=== PATIENT | male | born 1990 | race Hispanic/Latino ===

== ENCOUNTER 2018-10-04 09:51 | Emergency (ER) | payer OTHER ==
--- NOTE | 2018-10-04 11:13 | EDPHYS ---
Physician Documentation [facility] Name: Ari Albert Age: 28 yrs Sex: Male : 1990 Arrival Date: 10/04/2018 Time: 09:54 Bed 17 Private MD: Malika Griffin Z ED Physician Ranjit Dhillon HPI: 10/04 10:55 This 28 yrs old Male presents to ER via Ambulatory with complaints of Neck ps1 Pain, <24hrs Old, Back Pain, Leg Pain. 10:55 patient with well established back pain and neck pain. He has been going to a [facility] for some time. Pain is worse today. Hurts to walk. Pain localized to right SI joint and left lower cervical region. Pain rated as moderate worse with movement. . Historical: - Allergies: 10:20 No Known Allergies; la1 - PMHx: 10:20 None; la1 - Immunization history:: Adult Immunizations up to date. - Social history:: Smoking status: Patient uses tobacco products, smokes one-half pack cigarettes per day. - Ebola Screening: : No symptoms or risks identified at this time. ROS: 10:55 Constitutional: Negative for fever, chills, and weight loss, Eyes: Negative for injury, ps1 pain, redness, and discharge, Cardiovascular: Negative for chest pain, palpitations, and edema, Respiratory: Negative for shortness of breath, cough, wheezing, and pleuritic chest pain, Abdomen/GI: Negative for abdominal pain, nausea, vomiting, diarrhea, and constipation, MS/Extremity: Negative for injury and deformity, Skin: Negative for injury, rash, and discoloration, Neuro: Negative for headache, weakness, numbness, tingling, and seizure. 10:55 Neck: Positive for pain with movement, spasm. 10:55 Back: Positive for decreased range of motion, pain at right SI joint. . Exam: 10:55 Constitutional: This is a well developed, well nourished patient who is awake, alert, ps1 and in no acute distress. Head/Face: Normocephalic, atraumatic. Eyes: Pupils equal round and reactive to light, extra-ocular motions intact. Lids and lashes normal. Conjunctiva and sclera are non-icteric and not injected. Chest/axilla: Normal chest wall appearance and motion. Nontender with no deformity. No lesions are appreciated. Cardiovascular: Regular rate and rhythm. No gallops, murmurs, or rubs. Normal PMI, no JVD. No pulse deficits. Respiratory: Lungs have equal breath sounds bilaterally, clear to auscultation and percussion. No rales, rhonchi or wheezes noted. No increased work of breathing, no retractions or nasal flaring. Abdomen/GI: Soft, non-tender, with normal bowel sounds. No distension or tympany. No guarding or rebound. No evidence of tenderness throughout. Skin: Warm, dry with normal turgor. Normal color with no rashes, no lesions, and no evidence of cellulitis. MS/ Extremity: Pulses equal, no cyanosis. Neurovascular intact. Full, normal range of motion. Neuro: Awake and alert, GCS 15, oriented to person, place, time, and situation. Cranial nerves II-XII grossly intact. Sensory grossly intact. 10:55 Neck: External neck: tenderness, that is moderate, of the left trapezius. 10:55 Back: pain, that is moderate, of the right low back. Vital Signs: 10:20 BP 124 / 83; Pulse 75; Resp 16; Temp 97.8; Pulse Ox 98% on R/A; Weight 79.38 kg; Height la1 6 ft. 2 in. (187.96 cm); 10:20 Body Mass Index 22.47 (79.38 kg, 187.96 cm) la1 MDM: 10:55 Data reviewed: vital signs, nurses notes. ED course: Patient examined in supine and ps1 prone position. TART findings in SI, lumbar, mid thoracic, and cervical spine. HVLA performed. Patient had increased ROM and decreased pain after procedure. NV intact. . 11:13 Patient medically screened. ps1 Administered Medications: No medications were administered Disposition: 10/04/18 11:13 Discharged to Home. Impression: Sacroiliitis, not elsewhere classified, Cervicalgia. - Condition is Stable. - Discharge Instructions: Musculoskeletal Pain. - Prescriptions for Anaprox DS 550 mg Oral Tablet - take 1 tablet by ORAL route every 12 hours As needed; 20 tablet. Robaxin 500 mg Oral Tablet - take 2 tablet by ORAL route every 6 hours As needed; 40 tablet. Medrol (Magan) 4 mg Oral Tablets, Dose Pack - take 1 tablet by ORAL route as directed - follow package instructions; 1 packet. - Medication Reconciliation Form, Thank You Letter, Antibiotic Education, Prescription Opioid Use form. - Follow up: Private Physician; When: As needed; Reason: Recheck today's complaints, Continuance of care, Re-evaluation by your physician. Follow up: Emergency Department; When: As needed; Reason: Worsening of condition. - Problem is an acute exacerbation. - Symptoms have improved. Signatures: Lena Chanel RN RN aa5 Rohith Perez RN RN la1 Ranjit Dhillon MD MD ps1 Corrections: (The following items were deleted from the chart) 11:28 11:13 10/04/2018 11:13 Discharged to Home. Impression: Sacroiliitis, not elsewhere aa5 classified; Cervicalgia. Condition is Stable. Forms are Medication Reconciliation Form, Thank You Letter, Antibiotic Education, Prescription Opioid Use. Follow up: Private Physician; When: As needed; Reason: Recheck today's complaints, Continuance of care, Re-evaluation by your physician. Follow up: Emergency Department; When: As needed; Reason: Worsening of condition. Problem is an acute exacerbation. Symptoms have improved. ps1
--- NOTE | 2018-10-04 11:13 | ER ---
Nurse's Notes [facility] Name: Ari Albert Age: 28 yrs Sex: Male : 1990 Arrival Date: 10/04/2018 Time: 09:54 Bed 17 Private MD: Malika Griffin Z Diagnosis: Sacroiliitis, not elsewhere classified;Cervicalgia Presentation: 10/04 10:19 Presenting complaint: Patient states: Yesterday morning I woke up with neck pain and la1 today the pain is radiating down my spine all the way to my right leg. Transition of care: patient was not received from another setting of care. Acute neurological deficit: none identified. Onset of symptoms was October 04, 2018. Risk Assessment: Do you want to hurt yourself or someone else? Patient reports no desire to harm self or others. Initial Sepsis Screen: Does the patient meet any 2 criteria? No. Patient's initial sepsis screen is negative. Does the patient have a suspected source of infection? No. Patient's initial sepsis screen is negative. Care prior to arrival: None. 10:19 Method Of Arrival: Ambulatory la1 10:19 Acuity: BENNY 3 la1 Historical: - Allergies: 10:20 No Known Allergies; la1 - PMHx: 10:20 None; la1 - Immunization history:: Adult Immunizations up to date. - Social history:: Smoking status: Patient uses tobacco products, smokes one-half pack cigarettes per day. - Ebola Screening: : No symptoms or risks identified at this time. Screenin:50 Abuse screen: Denies threats or abuse. Nutritional screening: No deficits noted. aa5 Tuberculosis screening: No symptoms or risk factors identified. Fall Risk None identified. Assessment: 10:50 General: Appears uncomfortable, Behavior is calm, cooperative. Pain: Complains of pain aa5 in right side of neck, right side of back Pain radiates to right leg Pain currently is 10 out of 10 on a pain scale. Quality of pain is described as aching, tender, throbbing, Is continuous, Aggravated by increased activity, Noted to be resistant to movement. Neuro: Level of Consciousness is awake, alert, obeys commands, Oriented to person, place, time, situation. Cardiovascular: Heart tones S1 S2 present Rhythm is regular. Respiratory: Airway is patent Respiratory effort is even, unlabored, Respiratory pattern is regular, symmetrical. GI: No signs and/or symptoms were reported involving the gastrointestinal system. : No signs and/or symptoms were reported regarding the genitourinary system. EENT: No signs and/or symptoms were reported regarding the EENT system. Derm: Skin is pink, warm \T\ dry. Musculoskeletal: Range of motion: intact in all extremities. 11:00 Reassessment: Dr. Dhillon at bedside. Dr Denney manipulating pt's back and neck at this aa5 time. . 11:10 Reassessment: Patient is alert, oriented x 3, equal unlabored respirations, skin aa5 warm/dry/pink. Pt's states feeling better. Pain: Pain currently is 5 out of 10 on a pain scale. Vital Signs: 10:20 BP 124 / 83; Pulse 75; Resp 16; Temp 97.8; Pulse Ox 98% on R/A; Weight 79.38 kg; Height la1 6 ft. 2 in. (187.96 cm); 10:20 Body Mass Index 22.47 (79.38 kg, 187.96 cm) la1 ED Course: 09:54 Patient arrived in ED. rg4 09:55 Malika Griffni MD is Private Physician. rg4 10:19 Triage completed. la1 10:20 Arm band placed on right wrist. la1 10:43 Ranjit Dhillon MD is Attending Physician. ps1 10:46 Lena Chanel RN is Primary Nurse. aa5 10:50 Patient has correct armband on for positive identification. Bed in low position. Call aa5 light in reach. Side rails up X 1. 11:25 Patient did not have IV access during this emergency room visit. aa5 11:25 No provider procedures requiring assistance completed. aa5 Administered Medications: No medications were administered Outcome: 11:13 Discharge ordered by . ps1 11:25 Discharged to home ambulatory, with significant other. aa5 11:25 Condition: improved 11:25 Discharge instructions given to patient, Instructed on discharge instructions, follow up and referral plans. medication usage, Demonstrated understanding of instructions, follow-up care, medications, Prescriptions given X 3. 11:28 Patient left the ED. aa5 Signatures: Lena Chanel RN RN aa5 Rohith Perez RN RN la1 Julisa Long rg4 Ranjit Dhillon MD MD ps1 Corrections: (The following items were deleted from the chart) 15:31 11:00 Reassessment: Dr. Dhillon at bedside . aa5 aa5
== END 2018-10-04 11:28 | disposition home or self-care (01) ==
LOC: ER 09:51
DX: M46.1 Sacroiliitis, not elsewhere classified (principal); F17.210 Nicotine dependence, cigarettes, uncomplicated; M54.2 Cervicalgia
CPT/HCPCS: 99282

== ENCOUNTER 2019-02-15 18:34 | Emergency (ER) | payer OTHER ==
--- OUTSIDE RECORDS SUMMARY | 2019-02-15 18:36 | XMS REPORT ---
:1990 [facility] [address] [place] [address] [place] [id number] Care Team Providers Name Role Phone Unavailable Unavailable Unavailable Problems This patient has no known problems. Allergies, Adverse Reactions, Alerts This patient has no known allergies or adverse reactions. Medications This patient has no known medications.
--- NOTE | 2019-02-15 19:42 | RAD REPORT ---
EXAM DESCRIPTION: RAD - Chest Single View - 02/15/2019 7:32 pm CLINICAL HISTORY: Chest pain COMPARISON: None. TECHNIQUE: AP portable chest image was obtained 1925 hours . FINDINGS: Lungs are clear. Heart and vasculature are normal. No measurable pleural effusion and no p neumothorax. No acute bony abnormality seen. No acute aortic findings suspected. IMPRESSION: No acute cardiopulmonary process.
[2019-02-15 19:59] LABS: Hematocrit 48.1 % (39.6-49.0); RBC Red Blood Cell Count 5.32 M/uL (4.33-5.43)
[2019-02-15 20:20] LABS: Barbiturates NEGATIVE (NEGATIVE); Benzodiazepines NEGATIVE (NEGATIVE); Cocaine NEGATIVE (NEGATIVE); METHAMPHETAM NEGATIVE (NEGATIVE); Methadone NEGATIVE (NEGATIVE); Opiates NEGATIVE (NEGATIVE); Phencyclidine NEGATIVE (NEGATIVE); THC Cannibis NEGATIVE (NEGATIVE)
[2019-02-15 20:22] LABS: BUN Blood Urea Nitrogen 11 mg/dL (7-18); Bicarbonate 29 mmol/L (21-32); Glucose Level 100 mg/dL (74-106); Potassium 3.8 mmol/L (3.5-5.1); Sodium Level 139 mmol/L (136-145); Troponin (Emerg Dept Use Only) < 0.02 ng/mL (0.0-0.045)
[2019-02-15 20:46] LABS: Urine Blood NEGATIVE (NEG); Urine Glucose NEGATIVE (NEG); Urine Protein NEGATIVE (NEG); Urine Specific Gravity 1.015 (1.005-1.030); Urine pH 7.5 (5.0-7.0)
[2019-02-15 20:51] LABS: Absolute Lymphocytes (CBC) 1.7 K/uL (0.7-4.9); Absolute Neutrophil 14.1 K/uL (1.8-8.0); Basophils % 0.3 % (0-1.3); Eosinophils % 2.2 % (0-4.4); Lymphocytes % 10.1 % (15.3-44.8); Monocytes % 5.9 % (3.3-12.3)
[2019-02-15] MEDS ORDERED: NA CHLORIDE 0.9% 1,000 ML ONE (21:06)
[2019-02-15 22:32] LABS: Absolute Monocytes 0.9 K/uL (0.1-1.3); Absolute Neutrophil 11.6 K/uL (1.8-8.0); Basophils % 0.4 % (0-1.3); Eosinophils % 2.7 % (0-4.4); Hematocrit 41.6 % (39.6-49.0); Lymphocytes % 13.6 % (15.3-44.8); MPV 8.8 fL (7.6-11.3); Monocytes % 6.3 % (3.3-12.3); RBC Red Blood Cell Count 4.67 M/uL (4.33-5.43)
--- NOTE | 2019-02-15 22:52 | ER ---
Nurse's Notes [facility] Name: Ari Albert Age: 28 yrs Sex: Male : 1990 Arrival Date: 02/15/2019 Time: 18:36 Bed 8 Private MD: Diagnosis: Chest pain. Anxiety disoder Presentation: 02/15 18:38 Presenting complaint: Patient states: continuous L sided CP that began days ago. Pt ss reports sharp pains that come and go on occasion. Transition of care: patient was not received from another setting of care. Onset of symptoms is unknown. Risk Assessment: Do you want to hurt yourself or someone else? Patient reports no desire to harm self or others. Initial Sepsis Screen: Does the patient meet any 2 criteria? No. Patient's initial sepsis screen is negative. Does the patient have a suspected source of infection? No. Patient's initial sepsis screen is negative. Care prior to arrival: None. 18:38 Method Of Arrival: Ambulatory ss 18:38 Acuity: BENNY 3 ss Triage Assessment: 18:45 General: Appears in no apparent distress. comfortable, Behavior is cooperative, bp appropriate for age, anxious. Pain: Complains of pain in chest. EENT: No deficits noted. Neuro: Level of Consciousness is awake, alert, obeys commands, Oriented to person, place, time, situation, Appropriate for age. Cardiovascular: Rhythm is sinus rhythm. Respiratory: Airway is patent Respiratory effort is even, unlabored, Respiratory pattern is regular, symmetrical. GI: No signs and/or symptoms were reported involving the gastrointestinal system. : No signs and/or symptoms were reported regarding the genitourinary system. Derm: No deficits noted. Musculoskeletal: Circulation, motion, and sensation intact. Range of motion: intact in all extremities. Historical: - Allergies: 18:40 No Known Allergies; ss - Home Meds: 18:40 None [Active]; ss - PMHx: 18:40 Anxiety; ss - PSHx: 18:40 None; ss - Immunization history:: Adult Immunizations up to date. - Social history:: Smoking status: Patient uses tobacco products, smokes one-half pack cigarettes per day. - Ebola Screening: : Patient denies exposure to infectious person Patient denies travel to an Ebola-affected area in the 21 days before illness onset. Screenin:45 Abuse screen: Denies threats or abuse. Denies injuries from another. Nutritional bp screening: No deficits noted. Tuberculosis screening: No symptoms or risk factors identified. Fall Risk None identified. Assessment: 18:45 General: SEE TRIAGE NOTE. bp 19:45 General: Appears in no apparent distress. comfortable, Behavior is calm, cooperative, lp1 appropriate for age. Pain: Complains of pain in chest Pain does not radiate. Pain currently is 0 out of 10 on a pain scale. Pain began 2-3 days ago. Neuro: Level of Consciousness is awake, alert, obeys commands, Oriented to person, place, time, situation. Cardiovascular: Patient's skin is warm and dry. Respiratory: Respiratory effort is even, unlabored. GI: No deficits noted. : No deficits noted. EENT: No deficits noted. Derm: Skin is pink, warm \T\ dry. Musculoskeletal: Circulation, motion, and sensation intact. 20:45 Reassessment: Patient appears in no apparent distress at this time. No changes from lp1 previously documented assessment. Patient and/or family updated on plan of care and expected duration. Pain level reassessed. 21:36 Reassessment: Patient appears in no apparent distress at this time. Patient is alert, lp1 oriented x 3, equal unlabored respirations, skin warm/dry/pink. Patient denies pain at this time. Patient states feeling better. 22:30 Reassessment: Patient is alert, oriented x 3, equal unlabored respirations, skin lp1 warm/dry/pink. Patient denies pain at this time. Patient states feeling better. Vital Signs: 18:37 BP 129 / 96; Pulse 88; Resp 17; Temp 98.1(O); Pulse Ox 100% on R/A; Weight 79.38 kg; ss Height 6 ft. 2 in. (187.96 cm); Pain 7/10; 19:45 BP 142 / 93; Pulse 80; Resp 16; Pulse Ox 99% on R/A; Pain 0/10; lp1 20:45 BP 134 / 82; Pulse 87; Resp 16; Pulse Ox 98% on R/A; Pain 0/10; lp1 21:30 BP 144 / 97; Pulse 70; Resp 16; Pulse Ox 99% on R/A; Pain 0/10; lp1 22:30 BP 134 / 85; Pulse 71; Resp 16; Pulse Ox 98% on R/A; lp1 23:24 BP 131 / 79; Pulse 67; Resp 16; Pulse Ox 98% on R/A; Pain 0/10; lp1 18:37 Body Mass Index 22.47 (79.38 kg, 187.96 cm) ED Course: 18:36 Patient arrived in ED. mr 18:37 Arm band placed on right wrist. ss 18:39 Triage completed. 18:45 Patient has correct armband on for positive identification. Bed in low position. Call bp light in reach. Side rails up X2. 18:58 Papa James, RN is Primary Nurse. bp 19:07 Shaheed Valera MD is Attending Physician. pkl 19:31 XRAY CXR (1 view) In Process Unspecified. EDMS 19:45 Initial lab(s) drawn, by me, sent to lab. lp1 19:56 aoc director combat operations officer on. Pulse ox on. NIBP on. lp1 19:56 Patient maintains SpO2 saturation greater than 95% on room air. lp1 20:59 Inserted saline lock: 22 gauge in right forearm, using aseptic technique. lp1 21:19 Strep swab sent to lab. lp1 21:38 No provider procedures requiring assistance completed. lp1 22:00 Repeat lab(s) drawn. by me, sent to lab. lp1 23:24 IV discontinued, No redness/swelling at site. Pressure dressing applied. lp1 Administered Medications: 20:59 Drug: NS 0.9% 1000 ml Route: IV; Rate: 1000 ml; Site: right forearm; lp1 22:00 Follow up: IV Status: Completed infusion; IV Intake: 1000ml lp1 Intake: 22:00 IV: 1000ml; Total: 1000ml. lp1 Outcome: 22:51 Discharge ordered by . pkl 23:25 Discharged to home ambulatory. lp1 23:25 Condition: good 23:25 Discharge instructions given to patient, Instructed on discharge instructions, follow up and referral plans. medication usage, Demonstrated understanding of instructions, follow-up care, medications, Prescriptions given X 1. 23:25 Patient left the ED. lp1 Signatures: Dispatcher [employer] EDAL Shaheed Valera MD MD pkl Rivera, Mary Lu Tena RN RN Ginny Feng RN RN lp1 Papa James, RN RN bp Corrections: (The following items were deleted from the chart) 21:24 20:45 BP 122 / 43; Pulse 72bpm; Resp 18bpm; Pulse Ox 97% RA; Temp 99F Oral; Pain 0/10; lp1 lp1
--- NOTE | 2019-02-15 22:52 | EDPHYS ---
Physician Documentation [facility] Name: Ari Albert Age: 28 yrs Sex: Male : 1990 Arrival Date: 02/15/2019 Time: 18:36 Bed 8 Private MD: ED Physician Shaheed Valera HPI: 02/15 19:17 This 28 yrs old Male presents to ER via Ambulatory with complaints of Chest pkl Pain. 19:17 The patient or guardian reports chest pain that is located primarily in the left chest. pkl The pain does not radiate. Associated signs and symptoms: Pertinent positives: shortness of breath. The chest pain is described as dull. The patient has experienced similar episodes in the past, several times. Historical: - Allergies: 18:40 No Known Allergies; ss - Home Meds: 18:40 None [Active]; ss - PMHx: 18:40 Anxiety; ss - PSHx: 18:40 None; ss - Immunization history:: Adult Immunizations up to date. - Social history:: Smoking status: Patient uses tobacco products, smokes one-half pack cigarettes per day. - Ebola Screening: : Patient denies exposure to infectious person Patient denies travel to an Ebola-affected area in the 21 days before illness onset. ROS: 19:18 Eyes: Negative for injury, pain, redness, and discharge, ENT: Negative for injury, pkl pain, and discharge, Neck: Negative for injury, pain, and swelling. 19:18 Cardiovascular: Positive for chest pain. 19:18 Respiratory: Positive for shortness of breath. 19:18 Abdomen/GI: Negative for abdominal pain, nausea, vomiting, and diarrhea. 19:18 Back: Negative for acute changes. 19:18 : Negative for urinary symptoms. 19:18 MS/extremity: Negative for acute changes. 19:18 Skin: Negative for rash. 19:18 Neuro: Negative for altered mental status. Exam: 19:18 Head/Face: Normocephalic, atraumatic. Eyes: Pupils equal round and reactive to light, pkl extra-ocular motions intact. Lids and lashes normal. Conjunctiva and sclera are non-icteric and not injected. Cornea within normal limits. Periorbital areas with no swelling, redness, or edema. ENT: Nares patent. No nasal discharge, no septal abnormalities noted. Tympanic membranes are normal and external auditory canals are clear. Oropharynx with no redness, swelling, or masses, exudates, or evidence of obstruction, uvula midline. Mucous membranes moist. Neck: Trachea midline, no thyromegaly or masses palpated, and no cervical lymphadenopathy. Supple, full range of motion without nuchal rigidity, or vertebral point tenderness. No Meningismus. Chest/axilla: Normal chest wall appearance and motion. Nontender with no deformity. No lesions are appreciated. Cardiovascular: Regular rate and rhythm with a normal S1 and S2. No gallops, murmurs, or rubs. Normal PMI, no JVD. No pulse deficits. Respiratory: Lungs have equal breath sounds bilaterally, clear to auscultation and percussion. No rales, rhonchi or wheezes noted. No increased work of breathing, no retractions or nasal flaring. Abdomen/GI: Soft, non-tender, with normal bowel sounds. No distension or tympany. No guarding or rebound. No evidence of tenderness throughout. Back: No spinal tenderness. No costovertebral tenderness. Full range of motion. Skin: Warm, dry with normal turgor. Normal color with no rashes, no lesions, and no evidence of cellulitis. MS/ Extremity: Pulses equal, no cyanosis. Neurovascular intact. Full, normal range of motion. Neuro: Awake and alert, GCS 15, oriented to person, place, time, and situation. Cranial nerves II-XII grossly intact. Motor strength 5/5 in all extremities. Sensory grossly intact. Cerebellar exam normal. Normal gait. Vital Signs: 18:37 BP 129 / 96; Pulse 88; Resp 17; Temp 98.1(O); Pulse Ox 100% on R/A; Weight 79.38 kg; ss Height 6 ft. 2 in. (187.96 cm); Pain 7/10; 19:45 BP 142 / 93; Pulse 80; Resp 16; Pulse Ox 99% on R/A; Pain 0/10; lp1 20:45 BP 134 / 82; Pulse 87; Resp 16; Pulse Ox 98% on R/A; Pain 0/10; lp1 21:30 BP 144 / 97; Pulse 70; Resp 16; Pulse Ox 99% on R/A; Pain 0/10; lp1 22:30 BP 134 / 85; Pulse 71; Resp 16; Pulse Ox 98% on R/A; lp1 23:24 BP 131 / 79; Pulse 67; Resp 16; Pulse Ox 98% on R/A; Pain 0/10; lp1 18:37 Body Mass Index 22.47 (79.38 kg, 187.96 cm) ss MDM: 19:07 Patient medically screened. pkl 22:50 Data reviewed: vital signs, nurses notes, lab test result(s), EKG, radiologic studies, pkl plain films. 02/15 19:15 Order name: Chem 7; Complete Time: 20:40 pkl 02/15 19:15 Order name: Troponin (emerg Dept Use Only); Complete Time: 20:40 pkl 02/15 19:15 Order name: D-Dimer; Complete Time: 20:40 pkl 02/15 19:15 Order name: UDS; Complete Time: 20:40 pkl 02/15 20:05 Order name: Urine Dipstick--Ancillary (enter results); Complete Time: 22:15 ar5 02/15 19:15 Order name: EKG; Complete Time: 19:16 pkl 02/15 19:15 Order name: XRAY CXR (1 view); Complete Time: 19:55 pkl 02/15 20:46 Order name: Strep; Complete Time: 22:15 pkl 02/15 20:51 Order name: CBC with Automated Diff; Complete Time: 22:15 EDMS 02/15 21:41 Order name: Throat Culture EDMS 02/15 21:44 Order name: CBC with Diff; Complete Time: 22:48 lp1 02/15 19:34 Order name: EKG - Nurse/Tech; Complete Time: 19:34 lp1 Administered Medications: 20:59 Drug: NS 0.9% 1000 ml Route: IV; Rate: 1000 ml; Site: right forearm; lp1 22:00 Follow up: IV Status: Completed infusion; IV Intake: 1000ml lp1 Disposition: 02/15/19 22:51 Discharged to Home. Impression: Chest pain. Anxiety disoder. - Condition is Stable. - Prescriptions for Paxil 10 mg Oral Tablet - take 1 tablet by ORAL route once daily; 30 tablet. - Medication Reconciliation Form, Thank You Letter, Antibiotic Education, Prescription Opioid Use form. - Follow up: Private Physician; When: 2 - 3 days; Reason: Re-evaluation by your physician. - Problem is new. - Symptoms have improved. Signatures: Dispatcher [employer] EDWI Shaheed Valera MD MD pkl Lu Tena RN RN Ginny Feng RN RN lp1 Corrections: (The following items were deleted from the chart) 20:51 20:42 CBC+H.LAB.BRZ ordered. EDWI EDMS 20:52 19:16 CBC without Diff+H.LAB.BRZ ordered. EDWI EDMS 20:52 20:40 CBC without Diff+H.LAB.BRZ reviewed. pk EDMS 23:25 22:51 02/15/2019 22:51 Discharged to Home. Impression: Chest pain. Anxiety disoder. lp1 Condition is Stable. Forms are Medication Reconciliation Form, Thank You Letter, Antibiotic Education, Prescription Opioid Use. Follow up: Private Physician; When: 2 - 3 days; Reason: Re-evaluation by your physician. Problem is new. Symptoms have improved. pkl
--- NOTE | 2019-02-16 06:07 | EKG ---
Test Date: 2019-02-15 Test Time: 18:53:08 Car Restorer: SHANTELT MEASUREMENT RESULTS: Intervals: Rate: 75 AR: 134 QRSD: 100 QT: 370 QTc: 413 [place]: P: 64 AR: 134 QRS: 81 T: 51 INTERPRETIVE STATEMENTS: Normal sinus rhythm Incomplete right bundle branch block Borderline ECG No previous ECG available for comparison Electronically Signed On 02-16-19 06:05:38 CDT by Bill Vera
== END 2019-02-15 23:25 | disposition home or self-care (01) ==
LOC: ER 18:34
DX: R07.9 Chest pain, unspecified (principal); F41.9 Anxiety disorder, unspecified
CPT/HCPCS: 36415; 71045; 80048; 80307; 81003; 84484; 85025; 85379; 87070; 87081; 93005; 96360; 99285; J7030

== ENCOUNTER 2019-09-26 08:00 | Emergency (ER) | payer OTHER ==
--- OUTSIDE RECORDS SUMMARY | 2019-09-26 08:02 | XMS REPORT ---
:1990 [facility] Address [address] [place] [address] [place] [address] Care Team Providers Name Role Phone Unavailable Unavailable Unavailable Problems This patient has no known problems. Allergies, Adverse Reactions, Alerts This patient has no known allergies or adverse reactions. Medications This patient has no known medications.
[2019-09-26] MEDS ORDERED: HYDROCODONE/APAP 5/325 MG TAB ONE (08:23)
[2019-09-26] MEDS ORDERED: DIAZEPAM 2 MG TABLET ONE (08:24)
--- NOTE | 2019-09-26 09:00 | EDPHYS ---
Physician Documentation [facility] Name: Ari Albert Age: 29 yrs Sex: Male : 1990 Arrival Date: 09/26/2019 Time: 08:02 Bed 11 Private MD: ED Physician Tenzin Eldridge HPI: 09/26 08:18 This 29 yrs old Male presents to ER via Ambulatory with complaints of Shoulder snw Injury. 08:18 The patient or guardian complains of decreased range of motion, pain, that is acute, snw popping. right shoulder and right clavicle. Context: The problem was sustained at home, resulted from a direct blow, by a solid object, The patient experiences decreased range of motion, when attempts to raise arm, The patient reports no obvious deformity. Onset: The symptoms/episode began/occurred suddenly, yesterday. Modifying factors: the symptoms are alleviated by remaining still. Associated signs and symptoms: Pertinent positives: popping. Severity of symptoms: At their worst the symptoms were moderate. The patient has not experienced similar symptoms in the past. It is unknown whether or not the patient has recently seen a physician. Historical: - Allergies: 08:10 No Known Allergies; iw - Home Meds: 08:10 None [Active]; iw - PMHx: 08:10 Anxiety; iw - PSHx: 08:10 None; iw - Immunization history:: Adult Immunizations not up to date. - Social history:: Smoking status: Patient uses tobacco products, smokes one-half pack cigarettes per day. - Ebola Screening: : Patient negative for fever greater than or equal to 101.5 degrees Fahrenheit, and additional compatible Ebola Virus Disease symptoms Patient denies exposure to infectious person Patient denies travel to an Ebola-affected area in the 21 days before illness onset No symptoms or risks identified at this time. ROS: 08:18 Constitutional: Negative for fever, chills, and weight loss, Eyes: Negative for injury, snw pain, redness, and discharge, ENT: Negative for injury, pain, and discharge, Neck: Negative for injury, pain, and swelling, Cardiovascular: Negative for chest pain, palpitations, and edema, Respiratory: Negative for shortness of breath, cough, wheezing, and pleuritic chest pain, Abdomen/GI: Negative for abdominal pain, nausea, vomiting, diarrhea, and constipation, Back: Negative for injury and pain, : Negative for injury, bleeding, discharge, and swelling, Skin: Negative for injury, rash, and discoloration, Neuro: Negative for headache, weakness, numbness, tingling, and seizure. 08:18 MS/extremity: Positive for decreased range of motion, tenderness, of the anterior aspect of right shoulder. Exam: 08:17 Constitutional: This is a well developed, well nourished patient who is awake, alert, snw and in no acute distress. Head/Face: Normocephalic, atraumatic. Eyes: Pupils equal round and reactive to light, extra-ocular motions intact. Lids and lashes normal. Conjunctiva and sclera are non-icteric and not injected. Cornea within normal limits. Periorbital areas with no swelling, redness, or edema. ENT: Nares patent. No nasal discharge, no septal abnormalities noted. Tympanic membranes are normal and external auditory canals are clear. Oropharynx with no redness, swelling, or masses, exudates, or evidence of obstruction, uvula midline. Mucous membranes moist. Neck: Trachea midline, no thyromegaly or masses palpated, and no cervical lymphadenopathy. Supple, full range of motion without nuchal rigidity, or vertebral point tenderness. No Meningismus. Chest/axilla: Normal chest wall appearance and motion. Tender with no deformity at anterior shoulder. No lesions are appreciated. Cardiovascular: Regular rate and rhythm with a normal S1 and S2. No gallops, murmurs, or rubs. Normal PMI, no JVD. No pulse deficits. Respiratory: Lungs have equal breath sounds bilaterally, clear to auscultation and percussion. No rales, rhonchi or wheezes noted. No increased work of breathing, no retractions or nasal flaring. Back: No spinal tenderness. No costovertebral tenderness. Full range of motion. Skin: Warm, dry with normal turgor. Normal color with no rashes, no lesions, and no evidence of cellulitis. MS/ Extremity: Pulses equal, no cyanosis. Neurovascular intact. Full, normal range of motion. Neuro: Awake and alert, GCS 15, oriented to person, place, time, and situation. Cranial nerves II-XII grossly intact. Motor strength 5/5 in all extremities. Sensory grossly intact. Cerebellar exam normal. Normal gait. Psych: Awake, alert, with orientation to person, place and time. Behavior, mood, and affect are within normal limits. 08:17 Abdomen/GI: Soft, non-tender, with normal bowel sounds. No distension or tympany. No guarding or rebound. No evidence of tenderness throughout. Vital Signs: 08:10 BP 122 / 89; Pulse 92; Resp 16; Temp 98.0; Pulse Ox 98% on R/A; Weight 83.91 kg; Height iw 6 ft. 2 in. (187.96 cm); Pain 04/21; 08:10 Body Mass Index 23.75 (83.91 kg, 187.96 cm) iw MDM: 08:12 Patient medically screened. snw 11:02 Data reviewed: vital signs, nurses notes. Data interpreted: Pulse oximetry: is 98 %. snw Interpretation: normal. Counseling: I had a detailed discussion with the patient and/or guardian regarding: the historical points, exam findings, and any diagnostic results supporting the discharge/admit diagnosis, the presence of at least one elevated blood pressure reading (>120/80) during this emergency department visit, radiology results, the need for outpatient follow up, to return to the emergency department if symptoms worsen or persist or if there are any questions or concerns that arise at home. 09/26 08:12 Order name: Shoulder Right (2 View) XRAY snw Administered Medications: 08:25 Drug: Chestnut 5 mg-325 mg 1 tabs Route: PO; iw 08:25 Drug: Valium 2 mg Route: PO; iw Disposition: 09/26/19 08:59 Discharged to Home. Impression: Fall on same level from slipping, tripping and stumbling with subsequent striking against other object, Pain in right shoulder. - Condition is Stable. - Discharge Instructions: Joint Pain, Musculoskeletal Pain, Shoulder Pain, Shoulder Range of Motion Exercises, Heat Therapy. - Prescriptions for Mobic 7.5 mg Oral Tablet - take 1 tablet by ORAL route once daily take with food; 20 tablet. orphenadrine citrate 100 mg Oral Tablet Sustained Release - take 1 tablet by ORAL route 2 times per day As needed; 20 tablet. - Work release form, Medication Reconciliation Form, Thank You Letter, Antibiotic Education, Prescription Opioid Use form. - Follow up: Private Physician; When: 5 - 6 days; Reason: Recheck today's complaints, Continuance of care, Re-evaluation by your physician. Follow up: Emergency Department; When: As needed; Reason: Worsening of condition. Addendum: 09/27/2019 10:40 Co-signature as Attending Physician, Tenzin Eldridge MD I agree with the assessment and c card plan of care. Signatures: Dispatcher [employer] Tenzin Kuo MD MD cha Therrien, Shelly, LABORER RAGS-C LABORER RAGS-Csnw Corina Lynn RN RN iw Corrections: (The following items were deleted from the chart) 09/26 09:18 08:59 09/26/2019 08:59 Discharged to Home. Impression: Fall on same level from iw slipping, tripping and stumbling with subsequent striking against other object; Pain in right shoulder. Condition is Stable. Forms are Medication Reconciliation Form, Thank You Letter, Antibiotic Education, Prescription Opioid Use. Follow up: Private Physician; When: 5 - 6 days; Reason: Recheck today's complaints, Continuance of care, Re-evaluation by your physician. Follow up: Emergency Department; When: As needed; Reason: Worsening of condition. snw
--- NOTE | 2019-09-26 09:00 | ER ---
Nurse's Notes [facility] Name: Ari Albert Age: 29 yrs Sex: Male : 1990 Arrival Date: 09/26/2019 Time: 08:02 Bed 11 Private MD: Diagnosis: Fall on same level from slipping, tripping and stumbling with subsequent striking against other object;Pain in right shoulder Presentation: 09/26 08:08 Presenting complaint: Patient states: tripped and fell into corner of garage yesterday iw while working on car,. now has a lot of pain in right shoulder , feels popping. Transition of care: patient was not received from another setting of care. Onset of symptoms was September 25, 2019. Risk Assessment: Do you want to hurt yourself or someone else? Patient reports no desire to harm self or others. Initial Sepsis Screen: Does the patient meet any 2 criteria? No. Patient's initial sepsis screen is negative. Does the patient have a suspected source of infection? No. Patient's initial sepsis screen is negative. Care prior to arrival: None. 08:08 Method Of Arrival: Ambulatory iw 08:08 Acuity: BENNY 4 iw Triage Assessment: 08:10 Injury Description:. iw Historical: - Allergies: 08:10 No Known Allergies; iw - Home Meds: 08:10 None [Active]; iw - PMHx: 08:10 Anxiety; iw - PSHx: 08:10 None; iw - Immunization history:: Adult Immunizations not up to date. - Social history:: Smoking status: Patient uses tobacco products, smokes one-half pack cigarettes per day. - Ebola Screening: : Patient negative for fever greater than or equal to 101.5 degrees Fahrenheit, and additional compatible Ebola Virus Disease symptoms Patient denies exposure to infectious person Patient denies travel to an Ebola-affected area in the 21 days before illness onset No symptoms or risks identified at this time. Screenin:14 Abuse screen: Denies threats or abuse. Denies injuries from another. Nutritional iw screening: No deficits noted. Tuberculosis screening: No symptoms or risk factors identified. 09:18 Fall Risk None identified. iw Assessment: 08:13 General: Appears in no apparent distress. Behavior is calm, cooperative. Pain: iw Complains of pain in anterior aspect of right shoulder and posterior aspect of right shoulder Pain currently is 7 out of 10 on a pain scale. Neuro: Level of Consciousness is awake, alert, obeys commands, Oriented to person, place, time, situation, Moves all extremities. Full function. Cardiovascular: Patient's skin is warm and dry. Respiratory: Respiratory effort is even, unlabored, Respiratory pattern is regular, symmetrical. Derm: Skin is intact, is healthy with good turgor. Musculoskeletal: Range of motion: limited in right shoulder. Vital Signs: 08:10 BP 122 / 89; Pulse 92; Resp 16; Temp 98.0; Pulse Ox 98% on R/A; Weight 83.91 kg; Height iw 6 ft. 2 in. (187.96 cm); Pain 7/10; 08:10 Body Mass Index 23.75 (83.91 kg, 187.96 cm) iw ED Course: 08:02 Patient arrived in ED. as 08:09 Triage completed. iw 08:10 Arm band placed on. iw 08:11 Angy Murphy FNP-C is PHCP. snw 08:11 Tenzin Eldridge MD is Attending Physician. snw 08:13 Corina Lynn, TIANA is Primary Nurse. iw 08:57 Shoulder Right (2 View) XRAY In Process Unspecified. EDMS 09:18 Patient has correct armband on for positive identification. iw 09:18 No provider procedures requiring assistance completed. Patient did not have IV access iw during this emergency room visit. Administered Medications: 08:25 Drug: [place] 5 mg-325 mg 1 tabs Route: PO; iw 08:25 Drug: Valium 2 mg Route: PO; iw Outcome: 08:59 Discharge ordered by . snw 09:17 Discharged to home ambulatory, with family. iw 09:17 Condition: good 09:17 Discharge instructions given to patient, family, Instructed on discharge instructions, follow up and referral plans. medication usage, Demonstrated understanding of instructions, follow-up care, medications, Prescriptions given X 2. 09:18 Patient left the ED. iw Signatures: Dispatcher [employer] EDMS Angy Murphy FNP-C ADMINISTRATIVE ASSISTANT RECEPTIONIST-Csnw Lucia Francis as Corina Lynn, RN RN iw Corrections: (The following items were deleted from the chart) 12:35 10:30 Injury Description: iw iw
[2019-09-26 09:33] VITALS: BP 122/89; TEMP 98; O2SAT 98
--- NOTE | 2019-09-26 10:09 | RAD REPORT ---
EXAM DESCRIPTION: Shoulder Right 2 View - 09/26/2019 8:57 am CLINICAL HISTORY: Trip and fall, right shoulder pain COMPARISON: None. TECHNIQUE: Internal and external rotation views of the right shoulder were obtained. FINDINGS: There is no fracture or dislocation. AC joint is normal in appearance. No acute or suspic ious findings. IMPRESSION: Negative two-view right shoulder examination.
== END 2019-09-26 09:18 | disposition home or self-care (01) ==
LOC: ER 08:00
DX: M25.511 Pain in right shoulder (principal); F17.210 Nicotine dependence, cigarettes, uncomplicated; W01.10XA Fall on same level from slipping, tripping and stumbling with subsequent striking against unspecified object, initial encounter; Y93.01 Activity, walking, marching and hiking; Y92.009 Unspecified place in unspecified non-institutional (private) residence as the place of occurrence of the external cause
CPT/HCPCS: 99283

== ENCOUNTER 2019-11-22 16:36 | Emergency (ER) | payer OTHER ==
--- OUTSIDE RECORDS SUMMARY | 2019-11-22 16:38 | XMS REPORT ---
:1990 Author Organization [facility] Address [address] [place] [address] [place] [id number] Care Team Providers Name Role Phone Unavailable Unavailable Unavailable Problems This patient has no known problems. Allergies, Adverse Reactions, Alerts This patient has no known allergies or adverse reactions. Medications This patient has no known medications.
[2019-11-22 17:27] LABS: Absolute Lymphocytes (CBC) 2.2 K/uL (0.7-4.9); Basophils % 0.4 % (0-1.3); Hematocrit 43.7 % (39.6-49.0); MPV 8.3 fL (7.6-11.3); RBC Red Blood Cell Count 4.85 M/uL (4.33-5.43)
[2019-11-22 17:30] LABS: Protime INR 1.03
[2019-11-22 17:47] LABS: ALT/SGPT 27 U/L (12-78); AST/SGOT 24 U/L (15-37); Albumin 3.9 g/dL (3.4-5.0); Alkaline Phosphatase 77 U/L (45-117); BUN Blood Urea Nitrogen 9 mg/dL (7-18); Bicarbonate 25 mmol/L (21-32); Bilirubin Direct 0.1 mg/dL (0-0.2); Bilirubin Total 0.4 mg/dL (0.2-1.0); Glucose Level 130 mg/dL (74-106); Magnesium 2.2 mg/dL (1.8-2.4); NT PRO-BNP 30 pg/mL (<125); Potassium 3.4 mmol/L (3.5-5.1); Protein, Total 7.4 g/dL (6.4-8.2); Sodium Level 138 mmol/L (136-145); Troponin (Emerg Dept Use Only) < 0.02 ng/mL (0.0-0.045)
--- NOTE | 2019-11-22 17:53 | RAD REPORT ---
EXAM DESCRIPTION: RAD - Chest Single View - 11/22/2019 5:40 pm CLINICAL HISTORY: r/o pneumonia, left-sided chest pain COMPARISON: Chest Single View dated 02/15/2019 TECHNIQUE: AP portable chest image was obtained 11/22/2019 5:40 pm . FINDINGS: Lungs are clear. Heart and vasculature are normal. No measurable pleural effusion and no p neumothorax. No acute bony abnormality seen. No acute aortic findings suspected. IMPRESSION: No acute cardiopulmonary process.
--- NOTE | 2019-11-22 18:00 | RAD REPORT ---
EXAM DESCRIPTION: CT - Head Brain Wo Cont - 11/22/2019 5:46 pm CLINICAL HISTORY: dizziness COMPARISON: No comparisons TECHNIQUE: Axial 5 mm thick images of the head were obtained without IV contrast. All CT scans are performed using dose optimization technique as appropriate and may include automated exposure control or mA/KV adjustment according to patient size. FINDINGS: No intracranial hemorrhage, mass, edema or shift of mid-line structures. No acute infarcti on changes seen. No abnormal extra-axial fluid collections. Ventricles are normal. Mastoid air cells and visualized portions of the paranasal sinuses are clear. No acute bony findings. IMPRESSION: Negative non-contrast CT head examination.
--- NOTE | 2019-11-22 21:18 | ER ---
Nurse's Notes [facility] Name: Ari Albert Age: 29 yrs Sex: Male : 1990 Arrival Date: 11/22/2019 Time: 16:44 Bed 2 Private MD: Diagnosis: Chest pain, unspecified Presentation: 11/22 16:45 Presenting complaint: EMS states: reports getting nauseous and left sided chest pain, em denies vomiting or fever, reports cloudy thinking, EKG JEWELRY JOBBER sinus rhythm. Transition of care: patient was not received from another setting of care. Onset of symptoms was November 22, 2019. Risk Assessment: Do you want to hurt yourself or someone else? Patient reports no desire to harm self or others. Initial Sepsis Screen: Does the patient meet any 2 criteria? No. Patient's initial sepsis screen is negative. Does the patient have a suspected source of infection? No. Patient's initial sepsis screen is negative. Care prior to arrival: IV initiated. 20 GA, in the right antecubital area. 16:45 Method Of Arrival: EMS: BASF em 16:45 Acuity: BENNY 3 em Historical: - Allergies: 16:48 No Known Allergies; em - Home Meds: 16:48 None [Active]; em - PMHx: 16:48 Anxiety; em - PSHx: 16:48 None; em - Immunization history:: Last tetanus immunization: up to date Flu vaccine is not up to date. - Coronavirus screen:: The patient has NOT traveled to [place], [place], or [place] in the past 14 days. The patient has NOT had contact with known/suspected case of Coronavirus?. - Social history:: Smoking status: Patient reports the use of cigarette tobacco products, denies chronic smoking, but will smoke occasionally. - Ebola Screening: : Patient negative for fever greater than or equal to 101.5 degrees Fahrenheit, and additional compatible Ebola Virus Disease symptoms Patient denies exposure to infectious person Patient denies travel to an Ebola-affected area in the 21 days before illness onset No symptoms or risks identified at this time. Screenin:50 Abuse screen: Denies threats or abuse. Nutritional screening: No deficits noted. em Tuberculosis screening: No symptoms or risk factors identified. Fall Risk None identified. Assessment: 16:48 General: Appears in no apparent distress. comfortable, Behavior is calm, cooperative, em Denies fever. Pain: Denies pain. Neuro: Level of Consciousness is awake, alert, obeys commands, Oriented to person, place, time, situation, Appropriate for age Reports ramos. eyes dropping, and slurred speech that lasted about 40 minutes. Cardiovascular: Capillary refill < 3 seconds Patient's skin is warm and dry. Rhythm is sinus rhythm. Respiratory: Airway is patent Respiratory effort is even, unlabored, Respiratory pattern is regular, symmetrical. GI: Patient currently denies nausea, vomiting. Derm: Skin is intact, is healthy with good turgor, Skin is pink, warm \T\ dry. Musculoskeletal: Capillary refill < 3 seconds, Range of motion: intact in all extremities. 18:02 Reassessment: Patient appears in no apparent distress at this time. Patient and/or em family updated on plan of care and expected duration. Pain level reassessed. Patient is alert, oriented x 3, equal unlabored respirations, skin warm/dry/pink. Patient states feeling better. Patient states symptoms have improved. 19:05 Reassessment: Patient appears in no apparent distress at this time. Patient and/or aa1 family updated on plan of care and expected duration. Pain level reassessed. Patient is alert, oriented x 3, equal unlabored respirations, skin warm/dry/pink. Awaiting repeat troponin to be drawn at 1999 Patient denies pain at this time. 20:12 Reassessment: Patient appears in no apparent distress at this time. Patient and/or aa1 family updated on plan of care and expected duration. Pain level reassessed. Patient is alert, oriented x 3, equal unlabored respirations, skin warm/dry/pink. Awaiting repeat troponin results. 21:14 Reassessment: Patient appears in no apparent distress at this time. Patient is alert, aa1 oriented x 3, equal unlabored respirations, skin warm/dry/pink. Discussed d/c \T\ f/u instructions with pt; denies questions or concerns at this time. Ambulatory to lobby with steady gait. Patient denies pain at this time. Patient states feeling better. Vital Signs: 16:48 BP 135 / 88; Pulse 82; Resp 18; Temp 97.2; Pulse Ox 100% on R/A; Weight 83.91 kg; em Height 6 ft. 2 in. (187.96 cm); Pain 0/10; 18:01 BP 136 / 81; Pulse 67; Resp 18; Pulse Ox 99% on R/A; Pain 0/10; em 19:05 BP 112 / 85; Pulse 76; Resp 16; Pulse Ox 99% on R/A; Pain 0/10; aa1 20:10 BP 113 / 80; Pulse 67; Resp 16; Pulse Ox 99% on R/A; Pain 0/10; aa1 21:14 BP 113 / 85; Pulse 65; Resp 16; Temp 98.0; Pulse Ox 99% on R/A; Pain 0/10; aa1 16:48 Body Mass Index 23.75 (83.91 kg, 187.96 cm) em ED Course: 16:44 Patient arrived in ED. mr 16:45 Peter Becerra, TIANA is Primary Nurse. em 16:46 Wayne Prado NP is PHCP. pm1 16:46 Tenzin Eldridge MD is Attending Physician. pm1 16:47 Triage completed. em 16:48 Arm band placed on. em 16:50 Patient has correct armband on for positive identification. Placed in gown. Bed in low em position. Call light in reach. surveillance system monitor on. Pulse ox on. NIBP on. 16:50 Patient maintains SpO2 saturation greater than 95% on room air. em 16:50 Maintain EMS IV. Dressing intact. Good blood return noted. Site clean \T\ dry. Gauge \T\ em site: 20 RAC. 21:14 No provider procedures requiring assistance completed. IV discontinued, intact, aa1 bleeding controlled, No redness/swelling at site. Pressure dressing applied. Administered Medications: No medications were administered Outcome: 20:53 Discharge ordered by MD. pm1 21:14 Discharged to home ambulatory, with significant other. aa1 21:14 Condition: good 21:14 Discharge instructions given to patient, significant other, Instructed on discharge instructions, follow up and referral plans. medication usage, Demonstrated understanding of instructions, follow-up care, medications. 21:16 Patient left the ED. aa1 Signatures: Karen Osullivan RN RN aa1 IsbellAlysha mr Peter Becerra RN RN em Wayne Prado NP [employer] pm1
--- NOTE | 2019-11-22 21:19 | EDPHYS ---
Physician Documentation [facility] Name: Ari Albert Age: 29 yrs Sex: Male : 1990 Arrival Date: 11/22/2019 Time: 16:44 Bed 2 Private MD: ED Physician Tenzin Eldridge HPI: 11/22 16:54 This 29 yrs old Male presents to ER via EMS with complaints of Chest Pain, pm1 Nausea, Dizziness. 16:54 The patient or guardian reports chest pain that is located primarily in the left pm1 breast. Onset: The symptoms/episode began/occurred 1 hour prior to arrival. The pain does not radiate. Associated signs and symptoms: Pertinent positives: dizziness, slurred speech and bilateral eye droopiness per coworker, Pertinent negatives: abdominal pain, earache, fever, shortness of breath. Modifying factors: The patient symptoms are alleviated by nothing, the patient symptoms are aggravated by nothing. The chest pain is described as sharp. Duration: The patient or guardian reports a single episode, that is now resolved, that lasted 40 minute(s). Modifying factors: The symptoms are alleviated by nothing. the symptoms are aggravated by nothing. Severity of pain: in the emergency department the pain has resolved and did so just prior to arrival, is a 0 / 10. Feels similar to prior anxiety reaction. It is unknown whether or not the patient has recently seen a physician. Historical: - Allergies: 16:48 No Known Allergies; em - Home Meds: 16:48 None [Active]; em - PMHx: 16:48 Anxiety; em - PSHx: 16:48 None; em - Immunization history:: Last tetanus immunization: up to date Flu vaccine is not up to date. - Coronavirus screen:: The patient has NOT traveled to [place], [place], or [place] in the past 14 days. The patient has NOT had contact with known/suspected case of Coronavirus?. - Social history:: Smoking status: Patient reports the use of cigarette tobacco products, denies chronic smoking, but will smoke occasionally. - Ebola Screening: : Patient negative for fever greater than or equal to 101.5 degrees Fahrenheit, and additional compatible Ebola Virus Disease symptoms Patient denies exposure to infectious person Patient denies travel to an Ebola-affected area in the 21 days before illness onset No symptoms or risks identified at this time. ROS: 16:54 Constitutional: Negative for fever, chills, and weight loss, Eyes: Negative for injury, pm1 pain, redness, and discharge, ENT: Negative for injury, pain, and discharge, Neck: Negative for injury, pain, and swelling. 16:54 Respiratory: Negative for shortness of breath, cough, wheezing, and pleuritic chest pain, Abdomen/GI: Negative for abdominal pain, nausea, vomiting, diarrhea, and constipation, Back: Negative for injury and pain, MS/Extremity: Negative for injury and deformity, Skin: Negative for injury, rash, and discoloration. 16:54 Cardiovascular: Positive for chest pain, Negative for edema, palpitations. 16:54 Neuro: Positive for dizziness, speech changes, Negative for headache, numbness, tingling, weakness. 16:54 Psych: Positive for anxiety. Exam: 16:54 Constitutional: This is a well developed, well nourished patient who is awake, alert, pm1 and in no acute distress. Head/Face: Normocephalic, atraumatic. Eyes: Pupils equal round and reactive to light, extra-ocular motions intact. Lids and lashes normal. Conjunctiva and sclera are non-icteric and not injected. Cornea within normal limits. Periorbital areas with no swelling, redness, or edema. ENT: Nares patent. No nasal discharge, no septal abnormalities noted. Tympanic membranes are normal and external auditory canals are clear. Oropharynx with no redness, swelling, or masses, exudates, or evidence of obstruction, uvula midline. Mucous membranes moist. Neck: Trachea midline, no thyromegaly or masses palpated, and no cervical lymphadenopathy. Supple, full range of motion without nuchal rigidity, or vertebral point tenderness. No Meningismus. Chest/axilla: Normal chest wall appearance and motion. Nontender with no deformity. No lesions are appreciated. Cardiovascular: Regular rate and rhythm with a normal S1 and S2. No gallops, murmurs, or rubs. Normal PMI, no JVD. No pulse deficits. Respiratory: Lungs have equal breath sounds bilaterally, clear to auscultation and percussion. No rales, rhonchi or wheezes noted. No increased work of breathing, no retractions or nasal flaring. Abdomen/GI: Soft, non-tender, with normal bowel sounds. No distension or tympany. No guarding or rebound. No evidence of tenderness throughout. Back: No spinal tenderness. No costovertebral tenderness. Full range of motion. Skin: Warm, dry with normal turgor. Normal color with no rashes, no lesions, and no evidence of cellulitis. MS/ Extremity: Pulses equal, no cyanosis. Neurovascular intact. Full, normal range of motion. 16:54 Neuro: Orientation: is normal, Mentation: is normal, Cranial nerves: CN II- XII are normal as tested, Cerebellar function: normal finger to nose testing, Motor: is normal, moves all fours, strength is normal, strength is 5/5 in all extremities, Sensation: is normal, no obvious gross deficits. Vital Signs: 16:48 BP 135 / 88; Pulse 82; Resp 18; Temp 97.2; Pulse Ox 100% on R/A; Weight 83.91 kg; em Height 6 ft. 2 in. (187.96 cm); Pain 0/10; 18:01 BP 136 / 81; Pulse 67; Resp 18; Pulse Ox 99% on R/A; Pain 0/10; em 19:05 BP 112 / 85; Pulse 76; Resp 16; Pulse Ox 99% on R/A; Pain 0/10; aa1 20:10 BP 113 / 80; Pulse 67; Resp 16; Pulse Ox 99% on R/A; Pain 0/10; aa1 21:14 BP 113 / 85; Pulse 65; Resp 16; Temp 98.0; Pulse Ox 99% on R/A; Pain 0/10; aa1 16:48 Body Mass Index 23.75 (83.91 kg, 187.96 cm) em MDM: 16:47 Patient medically screened. pm1 20:52 Data reviewed: vital signs. Data interpreted: Pulse oximetry: on room air is 99 %. pm1 Interpretation: normal. 20:52 Counseling: I had a detailed discussion with the patient and/or guardian regarding: the pm1 historical points, exam findings, and any diagnostic results supporting the discharge/admit diagnosis, lab results, radiology results, the need for outpatient follow up, to return to the emergency department if symptoms worsen or persist or if there are any questions or concerns that arise at home. 11/22 16:54 Order name: Basic Metabolic Panel pm1 11/22 16:54 Order name: CBC with Diff pm1 11/22 16:54 Order name: LFT's pm11/22 16:54 Order name: Magnesium pm11/22 16:54 Order name: NT PRO-BNP pm11/22 16:54 Order name: PT-INR pm11/22 16:54 Order name: Troponin (emerg Dept Use Only) pm1 11/22 16:54 Order name: XRAY Chest (1 view) pm11/22 16:54 Order name: EKG; Complete Time: 19:39 pm1 11/22 16:55 Order name: CT Head Brain wo Cont pm11/22 19:36 Order name: RAD; Complete Time: 19:48 EDMS 11/22 19:36 Order name: CT; Complete Time: 19:48 EDMS 11/22 19:39 Order name: Troponin (emerg Dept Use Only) aa1 11/22 20:38 Order name: Troponin (Emerg Dept Use Only); Complete Time: 20:52 EDMS 11/22 16:54 Order name: Cardiac monitoring; Complete Time: 17:15 pm1 11/22 16:54 Order name: EKG - Nurse/Tech; Complete Time: 17:15 pm1 11/22 16:54 Order name: IV Saline Lock; Complete Time: 17:15 pm1 11/22 16:54 Order name: Labs collected and sent; Complete Time: 17:15 pm1 11/22 16:54 Order name: O2 Per Protocol; Complete Time: 17:15 pm1 11/22 16:54 Order name: O2 Sat Monitoring; Complete Time: 17:15 pm1 Administered Medications: No medications were administered Disposition: 11/23 07:40 Co-signature as Attending Physician, Tenzin Eldridge MD I agree with the assessment and franny plan of care. Disposition: 11/22/19 20:53 Discharged to Home. Impression: Chest pain, unspecified. - Condition is Stable. - Discharge Instructions: Nonspecific Chest Pain. - Medication Reconciliation Form, Thank You Letter, Antibiotic Education, Prescription Opioid Use form. - Follow up: Emergency Department; When: As needed; Reason: Worsening of condition. Follow up: Private Physician; When: 2 - 3 days; Reason: Recheck today's complaints, Continuance of care, Re-evaluation by your physician. - Problem is new. - Symptoms have improved. Signatures: Dispatcher [employer] EDKaren Greenberg RN RN aa1 Tenzin Eldridge MD MD cha Munoz, Edgar RN Wayne Bae, FRONTEND ENGINEER FRONTEND ENGINEER pm1 Corrections: (The following items were deleted from the chart) 11/22 21:16 20:53 11/22/2019 20:53 Discharged to Home. Impression: Chest pain, unspecified. aa1 Condition is Stable. Forms are Medication Reconciliation Form, Thank You Letter, Antibiotic Education, Prescription Opioid Use. Follow up: Emergency Department; When: As needed; Reason: Worsening of condition. Follow up: Private Physician; When: 2 - 3 days; Reason: Recheck today's complaints, Continuance of care, Re-evaluation by your physician. Problem is new. Symptoms have improved. pm1
--- NOTE | 2019-11-23 08:49 | EKG ---
Test Date: 2019-11-22 Test Time: 17:03:58 Supervisor Speech: RICHARD MEASUREMENT RESULTS: Intervals: Rate: 72 GA: 152 QRSD: 100 QT: 374 QTc: 409 [place]ah: P: 73 GA: 152 QRS: 76 T: 43 INTERPRETIVE STATEMENTS: Normal sinus rhythm Possible Left atrial enlargement Incomplete right bundle branch block Borderline ECG Compared to ECG 02/15/2019 18:53:08 no significant change from previous ECG Electronically Signed On 11-23-19 08:48:40 INDIVIDUAL SMALL GROUP INSTRUCTOR by Ab Lord
[2019-11-24 21:50] VITALS: O2SAT 99
[2019-11-24 21:54] VITALS: BP 113/85; TEMP 98
== END 2019-11-22 21:16 | disposition home or self-care (01) ==
LOC: ER 16:36
DX: R07.9 Chest pain, unspecified (principal); F41.9 Anxiety disorder, unspecified; Z72.0 Tobacco use
CPT/HCPCS: 36415; 70450; 71045; 80048; 80076; 83735; 83880; 84484; 85025; 85610; 93005; 99284

== ENCOUNTER 2020-05-05 20:34 | Emergency (ER) | payer OTHER, SELFPAY ==
--- OUTSIDE RECORDS SUMMARY | 2020-05-05 20:37 | XMS REPORT | Continuity of Care Document ---
:1990 Author Organization [facility] t Address [address] [place] [address] [place] [id number] Care Team Providers Name Role Phone Unavailable Unavailable Unavailable Problems This patient has no known problems. Allergies, Adverse Reactions, Alerts This patient has no known allergies or adverse reactions. Medications This patient has no known medications. Procedures This patient has no known procedures. Results This patient has no known results.
[2020-05-05] MEDS ORDERED: PROMETHAZINE INJ 25 MG/ML AMP ONE (22:20)
[2020-05-05] MEDS ORDERED: FENTANYL CITR 100 MCG/2 ML ONE (22:21)
[2020-05-05] MEDS ORDERED: NA CHLORIDE 0.9% 500 ML ONE (22:21)
[2020-05-05] MEDS ORDERED: TETANUS & DIPHTHERIA TOX,ADULT 0.5 ML VIAL ONE (22:42)
--- NOTE | 2020-05-05 23:11 | EDPHYS ---
Physician Documentation [facility] Name: Ari Albert Age: 30 yrs Sex: Male : 1990 Arrival Date: 05/05/2020 Time: 20:37 Bed 27 Private MD: ED Physician Rudy Valdivia HPI: 05/05 22:45 This 30 yrs old Male presents to ER via Ambulatory with complaints of Facial snw Injury. 22:45 The patient or guardian reports a puncture wound, tree branch. The complaints affect snw the right cheek and nose. 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 Onset: The symptoms/episode began/occurred suddenly, just prior to arrival. Associated signs and symptoms: Loss of consciousness: This patient did not experience any loss of consciousness. Pertinent positives: patient admits to or smells of alcohol consumption, numbness to right cheek, retained fb. Severity of symptoms: At their worst the symptoms were moderate. The patient has not experienced similar symptoms in the past. The patient has not recently seen a physician. no vomiting, alert, understands plan of care, pain decreased per report post Fentanyl. Historical: - Allergies: 22:47 No Known Allergies; ls4 - Home Meds: 22:47 None [Active]; ls4 - PMHx: 22:47 Anxiety; ls4 - PSHx: 22:47 None; ls4 - Immunization history: Last tetanus immunization: unknown. - Social history:: Smoking status: Patient denies any tobacco usage or history of. ROS: 22:35 Constitutional: Negative for fever, chills, and weight loss, Eyes: Negative for injury, snw pain, redness, and discharge, Neck: Negative for injury, pain, and swelling, Cardiovascular: Negative for chest pain, palpitations, and edema, Respiratory: Negative for shortness of breath, cough, wheezing, and pleuritic chest pain, Abdomen/GI: Negative for abdominal pain, nausea, vomiting, diarrhea, and constipation, Back: Negative for injury and pain, : Negative for injury, bleeding, discharge, and swelling, MS/Extremity: Negative for injury and deformity, Skin: Negative for injury, rash, and discoloration, Neuro: Negative for headache, weakness, numbness, tingling, and seizure. 22:35 ENT: Positive for foreign body sensation, struck a tree branch with right side of face, nose bleeding. Exam: 22:31 Constitutional: This is a well developed, well nourished patient who is awake, alert, snw and in no acute distress. Eyes: Pupils equal round and reactive to light, extra-ocular motions intact. Lids and lashes normal. Conjunctiva and sclera are non-icteric and not injected. Cornea within normal limits. Periorbital areas with no swelling, redness, or edema. Neck: Trachea midline, no thyromegaly or masses palpated, and no cervical lymphadenopathy. Supple, full range of motion without nuchal rigidity, or vertebral point tenderness. No Meningismus. Chest/axilla: Normal chest wall appearance and motion. Nontender with no deformity. No lesions are appreciated. Cardiovascular: Regular rate and rhythm with a normal S1 and S2. No gallops, murmurs, or rubs. Normal PMI, no JVD. No pulse deficits. Respiratory: Lungs have equal breath sounds bilaterally, wheezes to auscultation bilaterally. No rales, rhonchi noted. No increased work of breathing, no retractions or nasal flaring. Abdomen/GI: Soft, non-tender, with normal bowel sounds. No distension or tympany. No guarding or rebound. No evidence of tenderness throughout. 22:31 Back: No spinal tenderness. No costovertebral tenderness. Full range of motion. MS/ Extremity: Pulses equal, no cyanosis. Neurovascular intact. Full, normal range of motion. Neuro: Awake and alert, GCS 15, oriented to person, place, time, and situation. Cranial nerves II-XII grossly intact. Motor strength 5/5 in all extremities. Sensory grossly intact. Cerebellar exam normal. Normal gait. Psych: Awake, alert, with orientation to person, place and time. Behavior, mood, and affect are within normal limits. 22:31 ENT: External ear(s): are unremarkable, Ear canal(s): are normal, TM's: are normal, Nose: External nose: swelling is noted, foreign body evident to right nare, originating from right cheek, right cheek with edema and loss of sensation, bleeding, is noted from both nares. 22:31 Skin: as noted on face. Vital Signs: 20:48 BP 132 / 91; Pulse 99; Resp 18; Temp 98.6; Pulse Ox 98% ; Weight 81.65 kg; Height 6 ft. ea 2 in. (187.96 cm); 22:45 BP 117 / 78; Pulse 84; Resp 18; Pulse Ox 96% on R/A; Pain 4/10; ls4 23:31 BP 134 / 89; Pulse 61; Resp 16; Temp 97.9(O); Pulse Ox 96% on R/A; Pain 3/10; ls4 20:48 Body Mass Index 23.11 (81.65 kg, 187.96 cm) ea [place] Coma Score: 20:49 Eye Response: spontaneous(4). Verbal Response: oriented(5). Motor Response: obeys ea commands(6). Total: 15. 22:38 Eye Response: spontaneous(4). Verbal Response: oriented(5). Motor Response: obeys snw commands(6). Total: 15. 22:45 Eye Response: spontaneous(4). Verbal Response: oriented(5). Motor Response: obeys snw commands(6). Total: 15. Trauma Score (Adult): 20:49 Eye Response: spontaneous(1); Verbal Response: oriented(1); Motor Response: obeys ea commands(2); Systolic BP: > 89 mm Hg(4); Respiratory Rate: 10 to 29 per min(4); [place] Score: 15; Trauma Score: 12 MDM: 21:54 Patient medically screened. snw 22:38 Data reviewed: vital signs, nurses notes. Data interpreted: Pulse oximetry: on room air snw is 98 %. Interpretation: normal. 23:11 Counseling: I had a detailed discussion with the patient and/or guardian regarding: the snw historical points, exam findings, and any diagnostic results supporting the discharge/admit diagnosis, radiology results, the need to transfer to another facility, for higher level of care, [facility] does not immediately have the required specialist. Physician consultation: Dr. Kramer kindly accepts pt without report. 05/05 21:36 Order name: CT Maxillofacial W/cont snw 05/05 21:36 Order name: CT Head C Spine snw Administered Medications: 22:15 Drug: NS 0.9% 1000 ml Route: IV; Rate: 125 ml/hr; Site: right antecubital; ls4 05/06 00:05 Follow up: IV Status: Infusion continued upon transfer; IV Intake: 150ml ls4 05/05 22:16 Drug: Phenergan 12.5 mg Route: IVP; Site: right antecubital; ls4 22:45 Follow up: Response: No adverse reaction; Marked relief of symptoms ls4 22:18 Drug: fentaNYL (PF) 50 mcg Route: IVP; Site: right antecubital; ls4 22:45 Follow up: Response: No adverse reaction; Marked relief of symptoms; Pain is decreased ls4 22:44 Drug: Tetanus-Diphtheria Toxoid Adult 0.5 ml {[employer] Developer Dba: [email or web address]. Exp: ls4 12/02/2022. Lot #: [id number]. } Route: IM; Site: left deltoid; 22:45 Follow up: Response: No adverse reaction; Marked relief of symptoms ls4 Disposition: 05/06 02:13 Co-signature as Attending Physician, Rudy Valdivia MD. [facility] Disposition: 05/05/20 23:10 Transfer ordered to [facility]. Diagnosis is Anterior Maxillary Sinus fracture with foreign body and vascular injury. - Reason for transfer: Higher level of care. - Accepting physician is Jabier Mccann. - Condition is Stable. - Problem is new. - Symptoms are unchanged. Signatures: Dispatcher [employer] [facility] Angy Lucero, COMMUNITY SERVICES OFFICER-C COMMUNITY SERVICES OFFICER-Csnw Tamika Calderon, RN RN 4 Rudy Valdivia MD MD [facility] Corrections: (The following items were deleted from the chart) 05/05 21:43 21:20 Facial Bones <3 Views+RAD.RAD.BRZ ordered. [facility] 05/06 00:07 05/05 23:10 05/05/2020 23:10 Transfer ordered to [facility]. Diagnosis is ls4 Anterior Maxillary Sinus fracture with foreign body and vascular injury. Reason for transfer: Higher level of care. Accepting physician is Jabier Mccann. Condition is Stable. Problem is new. Symptoms are unchanged. snw
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
[2020-05-06 01:07] VITALS: O2SAT 96
[2020-05-06 01:09] VITALS: BP 134/89; TEMP 97.9
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
--- NOTE | 2020-05-08 08:58 | RAD REPORT ---
EXAM DESCRIPTION: CT - Maxillofacial W/Cont - 05/06/2020 4:54 am CLINICAL HISTORY: Facial pain;Foriegn Body COMPARISON: None available TECHNIQUE: Axial CT of the facial bone obtained following the uncomplicated IV administration of iod inated contrast. Coronal and sagittal reformatted images available. FINDINGS: Orbits: Orbital floors and bosch are intact. Intraorbital contents: The globes are intact. Extraocular muscles are symmetric. No intraconal fat st randing. Nasal bones: Intact. Maxilla: There is a comminuted a comminuted fracture of the right anterior maxillary wall along a pun cture track with subcutaneous air extending to the soft tissues into the right maxillary sinus. No ot her maxillary antral wall fractures. There is contrast extravasation into the right maxillary sinus c ompatible with active arterial bleeding/vascular injury. Periapical lucency of the right lateral maxi llary incisor. Sinuses: Likely chronic polypoid mucosal thickening of the maxillary sinuses. Zygomatic processes: Intact Pterygoid plates: Intact Mandible: Intact. No mandibular condylar dislocation. Skull base/cervical spine: Visualized portions of the skull base and cervical spine are intact. Visua lized mastoid air cells are well aerated. Subcutaneous soft tissues: Subcutaneous air at the rightward aspect of the nose and anterior to the r ight maxillary sinus along the puncture track. No radiopaque foreign body. A radiolucent foreign body , such as wood, may remain in place given linear configuration. Neck soft tissues: No definite abnormality involving the nasopharynx, oropharynx, or hypopharynx. Fos sa of Rosenmuller are clear. Parotid glands and submandibular glands are unremarkable. No cervical ly mphadenopathy. IMPRESSION: 1. There is contrast extravasation into the right maxillary sinus suggesting acitve ar terial bleeding. 2. There is a comminuted depressed fracture involving the right anterior wall of the maxillary sinu s with overlying soft tissue injury at this site of puncture wound. No radiopaque foreign body. A rad iolucent foreign body along the puncture tract may remain in place. This exam was performed according to our departmental dose-optimization program, which includes autom ated exposure control, adjustment of the mA and/or kV according to patient size and/or use of iterati ve reconstruction technique. THIS REPORT CONTAINS FINDINGS THAT MAY BE CRITICAL TO PATIENT CARE: The findings were verbally discu ssed via telephone conference with BRANDEN Lucero by Dr. Nigel Serra on 05/05/2020 10:25 PM CDT. The results were acknowledged and understood. Electronically signed by: Nigel Serra 05/05/2020 10:30 PM CDT Due to temporary technical issues with the PACS/Fluency reporting system, reports are being signed by the in house radiologist without review as a courtesy to ensure prompt reporting. The interpreting r adiologist is fully responsible for the content of the report.
== END 2020-05-06 00:07 | disposition short-term general hospital (02) ==
LOC: ER 20:34
DX: S02.40CA Maxillary fracture, right side, initial encounter for closed fracture (principal); W22.8XXA Striking against or struck by other objects, initial encounter; Y93.89 Activity, other specified; Y92.89 Other specified places as the place of occurrence of the external cause; Z23 Encounter for immunization
CPT/HCPCS: 70450; 70487; 72125; 90471; 90714; 96361; 96374; 96375; 99285; J2550; J3010; J7040; Q9967

== ENCOUNTER 2022-05-23 08:40 | Emergency (ER) | payer BC, OTHER ==
--- OUTSIDE RECORDS SUMMARY | 2022-05-23 08:45 | XMS REPORT | Continuity of Care Document ---
:1990 Author Organization [facility] t Address [address] [place] [address] Care Team Providers Name Role Phone PCP, PATIENT DOES NOT HAVE A Primary Care Physician Unavaila SARAH Stevens Attending Clinician Unavailable Only, Ang Db Test Attending Clinician Unavailable Cuba Colbert Attending Clinician CUBA PATTON Attending Clinician Unavailable Lab, Adc Fam Pob I Attending Clinician Unavailable Annie Nix Attending Clinician ANNIE GOMEZ Attending Clinician Unavailable RASHEL BREWER Attending Clinician Unavailable Rashel Brewer DDS Attending Clinician Doctor Unassigned, Hungry Horse Attending Clinician Unavailable Only, Adc Test Attending Clinician Unavailable Floyd Downey MD Attending Clinician Payers Payer Name Policy Type Policy Number Effective Date Expiration Date Maria C michele [employer] [id number] 2018 OUT OF NETWORK 00:00:00 Problems Condition Condition Condition Status Onset Resolution Last Treating Co mments Source Name Details Category Date Date Treatment Clinician Date No known No known Disease Unive rs active active ity of problems problems [facility] Allergies, Adverse Reactions, Alerts Allergy Allergy Status Severity Reaction(s) Onset Inactive Treating Comm ents Source Name Type Date Date Clinician NO KNOWN Drug Active Univers ALLERGIE Class ity of S [facility] Social History Social Habit Start Date Stop Date Quantity Comments Source History of tobacco Cigarette Smoker [place] of use [facility] Exposure to Yes [facility] SARS-CoV-2 (event) [facility] Tobacco use and 2021-04-04 2021-04-04 Never used Universit y of exposure 00:00:00 00:00:00 [facility] Cigarettes smoked 2021-04-04 2021-04-04 Univers ity of current (pack per 00:00:00 00:00:00 [facility] ) - Reported Branch Cigarette 2021-04-04 2021-04-04 University of pack-years 00:00:00 00:00:00 [facility] Sex [birth year] At [birth year] Universit y of 00:00:00 00:00:00 [facility] Smoking Status Start Date Stop Date Source Current every day smoker 2021-04-04 00:00:00 Uni versity of [facility] Never smoker [facility] Medications Ordered Filled Start Stop Current Ordering Indication Dosage Frequency Signature Comments Components Source Medication Medication Date Date Medication? Clinician (SIG) Name Name ibuprofen Yes [id number] 600mg Take 1 Univers 600 mg 7-30 tablet by ity of tablet 00:00: mouth [place] 00 every 6 Medical (six) Branch hours as needed for Pain (scale 1-3) or Alternate with [place] for pain scale 4-6. ibuprofen Yes [id number] 600mg Take 1 Univers 600 mg 7-30 tablet by ity of tablet 00:00: mouth [place] 00 every 6 Medical (six) Branch hours as needed for Pain (scale 1-3) or Alternate with [place] for pain scale 4-6. ibuprofen Yes [id number] 600mg Take 1 Univers 600 mg 7-30 tablet by ity of tablet 00:00: mouth [place] 00 every 6 Medical (six) Branch hours as needed for Pain (scale 1-3) or Alternate with [place] for pain scale 4-6. ibuprofen Yes [id number] 600mg Take 1 Univers 600 mg 7-30 tablet by ity of tablet 00:00: mouth [place] 00 every 6 Medical (six) Branch hours as needed for Pain (scale 1-3) or Alternate with [place] for pain scale 4-6. ibuprofen 2020-0 Yes [id number] 600mg Take 1 Univers 600 mg 7-30 tablet by ity of tablet 00:00: mouth [place] 00 every 6 Medical (six) Branch hours as needed for Pain (scale 1-3) or Alternate with [place] for pain scale 4-6. ibuprofen 2020-0 Yes [id number] 600mg Take 1 Univers 600 mg 7-30 tablet by ity of tablet 00:00: mouth [place] 00 every 6 Medical (six) Branch hours as needed for Pain (scale 1-3) or Alternate with [place] for pain scale 4-6. ibuprofen 2020-0 Yes [id number] 600mg Take 1 Univers 600 mg 7-30 tablet by ity of tablet 00:00: mouth [place] 00 every 6 Medical (six) Branch hours as needed for Pain (scale 1-3) or Alternate with [place] for pain scale 4-6. ibuprofen 2020-0 Yes [id number] 600mg Take 1 Univers 600 mg 7-30 tablet by ity of tablet 00:00: mouth [place] 00 every 6 Medical (six) Branch hours as needed for Pain (scale 1-3) or Alternate with [place] for pain scale 4-6. ibuprofen 2020-0 Yes [id number] 600mg Take 1 Univers 600 mg 7-30 tablet by ity of tablet 00:00: mouth [place] 00 every 6 Medical (six) Branch hours as needed for Pain (scale 1-3) or Alternate with [place] for pain scale 4-6. ibuprofen 2020-0 Yes [id number] 600mg Take 1 Univers 600 mg 7-30 tablet by ity of tablet 00:00: mouth [place] 00 every 6 Medical (six) Branch hours as needed for Pain (scale 1-3) or Alternate with [place] for pain scale 4-6. ibuprofen 2020-0 Yes [id number] 600mg Take 1 Univers 600 mg 7-30 tablet by ity of tablet 00:00: mouth [place] 00 every 6 Medical (six) Branch hours as needed for Pain (scale 1-3) or Alternate with [place] for pain scale 4-6. ibuprofen 2020-0 Yes [id number] 600mg Take 1 Univers 600 mg 7-30 tablet by ity of tablet 00:00: mouth [place] 00 every 6 Medical (six) Branch hours as needed for Pain (scale 1-3) or Alternate with [place] for pain scale 4-6. ibuprofen 2020-0 Yes [id number] 600mg Take 1 Univers 600 mg 7-30 tablet by ity of tablet 00:00: mouth [place] 00 every 6 Medical (six) Branch hours as needed for Pain (scale 1-3) or Alternate with [place] for pain scale 4-6. chlorhexidi 2020- No [id number] 15mL [place] and Univers ne 7- 08-07 spit out ity of (PERIDEX) 00:00: 04:59 15 mL 2 [place] 0.12 % [place] :00 (two) Medical mouthwash times Branch daily for 7 days. chlorhexidi 2020-0 2020- No [id number] 15mL Swish and Univers ne 7 08-07 spit out ity of (PERIDEX) 00:00: 04:59 15 mL 2 [place] 0.12 % 00 :00 (two) Medical mouthwash times Branch daily for 7 days. chlorhexidi 2020-0 2020- No [id number] 15mL Swish and Univers ne 7- 08-07 spit out ity of (PERIDEX) 00:00: 04:59 15 mL 2 [place] 0.12 % 00 :00 (two) Medical mouthwash times Branch daily for 7 days. chlorhexidi 2020-0 2020- No [id number] 15mL Swish and Univers ne 7 08-07 spit out ity of (PERIDEX) 00:00: 04:59 15 mL 2 [place] 0.12 % 00 :00 (two) Medical mouthwash times Branch daily for 7 days. chlorhexidi 2020-0 2020- No [id number] 15mL Swish and Univers ne 7-30 08-07 spit out ity of (PERIDEX) 00:00: 04:59 15 mL 2 [place] 0.12 % 00 :00 (two) Medical mouthwash times Branch daily for 7 days. chlorhexidi 2020-0 2020- No [id number] 15mL [place] and Univers ne 7 08-07 spit out ity of (PERIDEX) 00:00: 04:59 15 mL 2 [place] 0.12 % 00 :00 (two) Medical mouthwash times Branch daily for 7 days. chlorhexidi 2020-2020- No [id number] 15mL Swish and Univers ne 05-11 08-07 spit out ity of (PERIDEX) 00:00: 04:59 15 mL 2 [place] 0.12 % 00 :00 (two) Medical mouthwash times Branch daily for 7 days. chlorhexidi 2020-2020- No [id number] 15mL Swish and Univers ne 7 08-07 spit out ity of (PERIDEX) 00:00: 04:59 15 mL 2 [place] 0.12 % 00 :00 (two) Medical mouthwash times Branch daily for 7 days. chlorhexidi 2020-2020- No [id number] 15mL Swish and Univers ne 05-11 08-07 spit out ity of (PERIDEX) 00:00: 04:59 15 mL 2 [place] 0.12 % 00 :00 (two) Medical mouthwash times Branch daily for 7 days. chlorhexidi 2020-2020- No [id number] 15mL Swish and Univers ne 05-11 08-07 spit out ity of (PERIDEX) 00:00: 04:59 15 mL 2 [place] 0.12 % 00 :00 (two) Medical mouthwash times Branch daily for 7 days. amoxicillin 2020-2020- No [id number] 500mg Take 1 Univers 500 mg 7-30 08-05 tablet by ity of tablet 00:00: 04:59 mouth 3 [place] 00 :00 (three) Medical times Branch daily for 5 days. amoxicillin 2020-2020- No [id number] 500mg Take 1 Univers 500 mg 7-30 08-05 tablet by ity of tablet 00:00: 04:59 mouth 3 [place] 00 :00 (three) Medical times Branch daily for 5 days. amoxicillin 2020-0 2020- No [id number] 500mg Take 1 Univers 500 mg 7-30 08-05 tablet by ity of tablet 00:00: 04:59 mouth 3 [place] 00 :00 (three) Medical times Branch daily for 5 days. amoxicillin 2020-2020- No [id number] 500mg Take 1 Univers 500 mg 7-30 08-05 tablet by ity of tablet 00:00: 04:59 mouth 3 [place] 00 :00 (three) Medical times Branch daily for 5 days. amoxicillin 2020- No [id number] 500mg Take 1 Univers 500 mg 7-30 08-05 tablet by ity of tablet 00:00: 04:59 mouth 3 [place] 00 :00 (three) Medical times Branch daily for 5 days. amoxicillin 2020- No [id number] 500mg Take 1 Univers 500 mg 7-30 08-05 tablet by ity of tablet 00:00: 04:59 mouth 3 [place] 00 :00 (three) Medical times Branch daily for 5 days. amoxicillin 2020- No [id number] 500mg Take 1 Univers 500 mg 7-30 08-05 tablet by ity of tablet 00:00: 04:59 mouth 3 [place] 00 :00 (three) Medical times Branch daily for 5 days. HYDROcodone 2020- No 4647 1{tbl} Take 1 U nivers -acetaminop 7-30 08-02 tablet by it y of hen (NORCO) 00:00: 04:59 [place] 5-325 mg 00 :00 every 6 Medical tablet (six) Branch hours as needed for Pain (scale 7-10) for up to 2 days. Indication s: acute pain [place]DROcodone No 4647 1{tbl} Take 1 U nivers -acetaminop 7-30 08-02 tablet by it y of hen (NORCO) 00:00: 04:59 mouth [place] 5-325 mg 00 :00 every 6 Medical tablet (six) Branch hours as needed for Pain (scale 7-10) for up to 2 days. Indication s: acute pain HYDROcodone No 4647 1{tbl} Take 1 U nivers -acetaminop 7-30 08-02 tablet by it y of hen (NORCO) 00:00: 04:59 mouth [place] 5-325 mg 00 :00 every 6 Medical tablet (six) Branch hours as needed for Pain (scale 7-10) for up to 2 days. Indication s: acute pain HYDROcodone No 4647 1{tbl} Take 1 U nivers -acetaminop 7-30 08-02 tablet by it y of hen (Really Cheap Geeks) 00:00: 04:59 mouth [place] 5-325 mg 00 :00 every 6 Medical tablet (six) Branch hours as needed for Pain (scale 7-10) for up to 2 days. Indication s: acute pain HYDROcodone 2020-2020- No 4647 1{tbl} Take 1 U nivers -acetaminop 7-30 08-02 tablet by it y of hen (Really [employer]ee[employer]) 00:00: 04:59 mouth [place] 5-325 mg 00 :00 every 6 Medical tablet (six) Branch hours as needed for Pain (scale 7-10) for up to 2 days. Indication s: acute pain HYDROcodone 2020-2020- No 4647 1{tbl} Take 1 U nivers -acetaminop 7-30 08-02 tablet by it y of hen (Really [employer]) 00:00: 04:59 mouth [place] 5-325 mg 00 :00 every 6 Medical tablet (six) Branch hours as needed for Pain (scale 7-10) for up to 2 days. Indication s: acute pain HYDROcodone 2020-2020- No 4647 1{tbl} Take 1 U nivers -acetaminop 7-30 08-02 tablet by it y of hen (Really [place]ee[employer]) 00:00: 04:59 mouth [place] 5-325 mg 00 :00 every 6 Medical tablet (six) Branch hours as needed for Pain (scale 7-10) for up to 2 days. Indication s: acute pain traMADOL 50 2020-0 Yes 50mg Take 50 mg Univers mg tablet 6-23 by mouth ity of 20:59: every 6 [place] 26 (six) Medical hours as Branch needed. traMADOL 50 2020-0 Yes 50mg Take 50 mg Univers mg tablet 6-23 by mouth ity of 20:59: every 6 [place] 26 (six) Medical hours as Branch needed. traMADOL 50 2020-0 Yes 50mg Take 50 mg Univers mg tablet 6-23 by mouth ity of 20:59: every 6 [place] 26 (six) Medical hours as Branch needed. traMADOL 50 2020-0 Yes 50mg Take 50 mg Univers mg tablet 6-23 by mouth ity of 20:59: every 6 [place] 26 (six) Medical hours as Branch needed. traMADOL 50 2020-0 Yes 50mg Take 50 mg Univers mg tablet 6-23 by mouth ity of 20:59: every 6 [place] 26 (six) Medical hours as Branch needed. traMADOL 50 1-0 Yes 50mg Take 50 mg Univers mg tablet 6-23 by mouth ity of 20:59: every 6 [place] 26 (six) Medical hours as Branch needed. traMADOL 50 1-0 Yes 50mg Take 50 mg Univers mg tablet 6-23 by mouth ity of 20:59: every 6 [place] 26 (six) Medical hours as Branch needed. traMADOL 50 2020-0 Yes 50mg Take 50 mg Univers mg tablet 6-23 by mouth ity of 20:59: every 6 [place] 26 (six) Medical hours as Branch needed. traMADOL 50 1-0 Yes 50mg Take 50 mg Univers mg tablet 6-23 by mouth ity of 20:59: every 6 [place] 26 (six) Medical hours as Branch needed. traMADOL 50 2020-0 Yes 50mg Take 50 mg Univers mg tablet 6-23 by mouth ity of 20:59: every 6 [place] 26 (six) Medical hours as Branch needed. traMADOL 50 2020-0 Yes 50mg Take 50 mg Univers mg tablet 6-23 by mouth ity of 20:59: every 6 [place] 26 (six) Medical hours as Branch needed. traMADOL 50 1-0 Yes 50mg Take 50 mg Univers mg tablet 6-23 by mouth ity of 20:59: every 6 [place] 26 (six) Medical hours as Branch needed. traMADOL 50 1-0 Yes 50mg Take 50 mg Univers mg tablet 6-23 by mouth ity of 20:59: every 6 [place] 26 (six) Medical hours as Branch needed. traMADOL 50 2020-0 Yes 50mg Take 50 mg Univers mg tablet 6-23 by mouth ity of 20:59: every 6 [place] 26 (six) Medical hours as Branch needed. traMADOL 50 1-0 Yes 50mg Take 50 mg Univers mg tablet 6-23 by mouth ity of 20:59: every 6 [place] 26 (six) Medical hours as Branch needed. traMADOL 50 1-0 Yes 50mg Take 50 mg Univers mg tablet 6-23 by mouth ity of 20:59: every 6 [place] 26 (six) Medical hours as Branch needed. traMADOL 50 2021-0 Yes 50mg Take 50 mg Univers mg tablet - by mouth ity of 20:59: every 6 [place] [address] (six) Medical hours as Branch needed. traMADOL 50 Yes 50mg Take 50 mg Univers mg tablet - by mouth ity of 20:59: every 6 [place] [address] (six) Medical hours as Branch needed. SERTRALINE Yes Take by Univ ers HCL 6-23 mouth. ity of (SERTRALINE 20:57: [address] Branch NAPROXEN Yes Take by Univer s ORAL 6-23 mouth. ity of 20:57: [address] METHOCARBAM Yes Take by Uni vers OL ORAL 6-23 mouth. ity of 20:57: [address] HYDROXYZINE Yes Take by Uni vers HCL ORAL 6-23 mouth. ity of 20:57: [address] SERTRALINE Yes Take by Univ ers HCL 6-23 mouth. ity of (SERTRALINE 20:57: [address] NAPROXEN Yes Take by Univer s ORAL 6-23 mouth. ity of 20:57: [address] METHOCARBAM Yes Take by Uni vers OL ORAL 6-23 mouth. ity of 20:57: [address] HYDROXYZINE Yes Take by Uni vers HCL ORAL 6-23 mouth. ity of 20:57: [address] SERTRALINE Yes Take by Univ ers HCL 6-23 mouth. ity of (SERTRALINE 20:57: [address] NAPROXEN Yes Take by Univer s ORAL 6-23 mouth. ity of 20:57: [address] METHOCARBAM Yes Take by Uni vers OL ORAL 6-23 mouth. ity of 20:57: [address] HYDROXYZINE Yes Take by Uni vers HCL ORAL 6-23 mouth. ity of 20:57: [address] SERTRALINE Yes Take by Univ ers HCL 6-23 mouth. ity of (SERTRALINE 20:57: [address] Branch NAPROXEN Yes Take by Univer s ORAL 6-23 mouth. ity of 20:57: [address] METHOCARBAM Yes Take by Uni vers OL ORAL 6-23 mouth. ity of 20:57: [address] HYDROXYZINE 0 Yes Take by Uni vers HCL ORAL 6-23 mouth. ity of 20:57: [address] SERTRALINE Yes Take by Univ ers HCL 6-23 mouth. ity of (SERTRALINE 20:57: [address] Branch NAPROXEN 0 Yes Take by Univer s ORAL 6-23 mouth. ity of 20:57: [address] Branch METHOCARBAM Yes Take by Uni vers OL ORAL 6-23 mouth. ity of 20:57: [address] HYDROXYZINE Yes Take by Uni vers HCL ORAL 6-23 mouth. ity of 20:57: [address] SERTRALINE Yes Take by Univ ers HCL 6-23 mouth. ity of (SERTRALINE 20:57: [address] NAPROXEN Yes Take by Univer s ORAL 6-23 mouth. ity of 20:57: [address] METHOCARBAM Yes Take by Uni vers OL ORAL 6-23 mouth. ity of 20:57: [address] HYDROXYZINE Yes Take by Uni vers HCL ORAL 6-23 mouth. ity of 20:57: [address] SERTRALINE Yes Take by Univ ers HCL 6-23 mouth. ity of (SERTRALINE 20:57: [address] NAPROXEN 0 Yes Take by Univer s ORAL 6-23 mouth. ity of 20:57: [address] METHOCARBAM Yes Take by Uni vers OL ORAL 6-23 mouth. ity of 20:57: [address] HYDROXYZINE 0 Yes Take by Uni vers HCL ORAL 6-23 mouth. ity of 20:57: [address] SERTRALINE Yes Take by Univ ers HCL 6-23 mouth. ity of (SERTRALINE 20:57: [address] Branch NAPROXEN 0 Yes Take by Univer s ORAL 6-23 mouth. ity of 20:57: [address] METHOCARBAM Yes Take by Uni vers OL ORAL 6-23 mouth. ity of 20:57: [address] HYDROXYZINE 0 Yes Take by Uni vers HCL ORAL 6-23 mouth. ity of 20:57: [address] SERTRALINE Yes Take by Univ ers HCL 6-23 mouth. ity of (SERTRALINE 20:57: [address] Branch NAPROXEN 0 Yes Take by Univer s ORAL 6-23 mouth. ity of 20:57: [address] Branch METHOCARBAM Yes Take by Uni vers OL ORAL 6-23 mouth. ity of 20:57: [address] HYDROXYZINE Yes Take by Uni vers HCL ORAL 6-23 mouth. ity of 20:57: [address] SERTRALINE Yes Take by Univ ers HCL 6-23 mouth. ity of (SERTRALINE 20:57: [address] NAPROXEN Yes Take by Univer s ORAL 6-23 mouth. ity of 20:57: [address] METHOCARBAM Yes Take by Uni vers OL ORAL 6-23 mouth. ity of 20:57: [address] HYDROXYZINE Yes Take by Uni vers HCL ORAL 6-23 mouth. ity of 20:57: [address] SERTRALINE Yes Take by Univ ers HCL 6-23 mouth. ity of (SERTRALINE 20:57: [address] NAPROXEN 0 Yes Take by Univer s ORAL 6-23 mouth. ity of 20:57: [address] METHOCARBAM Yes Take by Uni vers OL ORAL 6-23 mouth. ity of 20:57: [address] HYDROXYZINE 0 Yes Take by Uni vers HCL ORAL 6-23 mouth. ity of 20:57: [address] SERTRALINE Yes Take by Univ ers HCL 6-23 mouth. ity of (SERTRALINE 20:57: [address] Branch NAPROXEN 0 Yes Take by Univer s ORAL 6-23 mouth. ity of 20:57: [address] METHOCARBAM Yes Take by Uni vers OL ORAL 6-23 mouth. ity of 20:57: [address] HYDROXYZINE 0 Yes Take by Uni vers HCL ORAL 6-23 mouth. ity of 20:57: [address] SERTRALINE Yes Take by Univ ers HCL 6-23 mouth. ity of (SERTRALINE 20:57: [address] Branch NAPROXEN 0 Yes Take by Univer s ORAL 6-23 mouth. ity of 20:57: [address] Branch METHOCARBAM Yes Take by Uni vers OL ORAL 6-23 mouth. ity of 20:57: [address] HYDROXYZINE Yes Take by Uni vers HCL ORAL 6-23 mouth. ity of 20:57: [address] SERTRALINE Yes Take by Univ ers HCL 6-23 mouth. ity of (SERTRALINE 20:57: [address] NAPROXEN Yes Take by Univer s ORAL 6-23 mouth. ity of 20:57: [address] METHOCARBAM Yes Take by Uni vers OL ORAL 6-23 mouth. ity of 20:57: [address] HYDROXYZINE Yes Take by Uni vers HCL ORAL 6-23 mouth. ity of 20:57: [address] SERTRALINE Yes Take by Univ ers HCL 6-23 mouth. ity of (SERTRALINE 20:57: [address] NAPROXEN 0 Yes Take by Univer s ORAL 6-23 mouth. ity of 20:57: [address] METHOCARBAM Yes Take by Uni vers OL ORAL 6-23 mouth. ity of 20:57: [address] HYDROXYZINE 0 Yes Take by Uni vers HCL ORAL 6-23 mouth. ity of 20:57: [address] SERTRALINE Yes Take by Univ ers HCL 6-23 mouth. ity of (SERTRALINE 20:57: [address] Branch NAPROXEN 0 Yes Take by Univer s ORAL 6-23 mouth. ity of 20:57: [address] METHOCARBAM Yes Take by Uni vers OL ORAL -23 mouth. ity of 20:57: [address] HYDROXYZINE Yes Take by Uni vers HCL ORAL -23 mouth. ity of 20:57: [address] SERTRALINE Yes Take by Univ ers HCL 6-23 mouth. ity of (SERTRALINE 20:57: [address] NAPROXEN Yes Take by Univer s ORAL -23 mouth. ity of 20:57: [address] METHOCARBAM Yes Take by Uni vers OL ORAL 6-23 mouth. ity of 20:57: [address] HYDROXYZINE Yes Take by Uni vers HCL ORAL -23 mouth. ity of 20:57: [address] SERTRALINE Yes Take by Univ ers HCL 6-23 mouth. ity of (SERTRALINE 20:57: [address] NAPROXEN Yes Take by Univer s ORAL 6-23 mouth. ity of 20:57: [address] METHOCARBAM Yes Take by Uni vers OL ORAL -23 mouth. ity of 20:57: [address] HYDROXYZINE Yes Take by Uni vers HCL ORAL -23 mouth. ity of 20:57: [address] traMADOL 50 Yes 50mg Take 50 mg Univers mg tablet 04-04 by mouth ity of 15:59: every 6 [place] [address] (six) Medical hours as Branch needed. HYDROXYZINE Yes Take by Uni vers HCL ORAL -23 mouth. ity of 15:57: [address] SERTRALINE Yes Take by Univ ers HCL 6-23 mouth. ity of (SERTRALINE 15:57: [address] NAPROXEN Yes Take by Univer s ORAL 6-23 mouth. ity of 15:57: [address] METHOCARBAM Yes Take by Uni vers OL ORAL 6-23 mouth. ity of 15:57: [address] SERTRALINE 2017-0 Yes Take by Univ ers HCL 8-16 mouth. ity of (SERTRALINE 00:39: [place] ORAL) 00 Medical Branch NAPROXEN 2017-0 Yes Take by Univer s ORAL 8-16 mouth. ity of 00:39: [place] 00 Medical Branch traMADOL 50 2017-0 Yes 50mg Take 50 mg Univers mg tablet 8-16 by mouth ity of 00:39: every 6 [place] 00 (six) Medical hours as Branch needed. METHOCARBAM 2017-0 Yes Take by Uni vers OL ORAL 8-16 mouth. ity of 00:39: [place] 00 Medical Branch HYDROXYZINE 2017-0 Yes Take by Uni vers HCL ORAL 8-16 mouth. ity of 00:38: [place] 59 Medical Branch Vital Signs Vital Name Observation Time Observation Value Comments Source Systolic blood 2021-05-18 20:47:00 120 mm[Hg] Univer sity of [facility] Diastolic blood 2021-05-18 20:47:00 85 mm[Hg] [facility] Heart rate 2021-05-18 20:47:00 64 /min [facility] Body temperature 2021-05-18 20:47:00 36.56 Veronique [facility] Systolic blood 2021-05-11 13:30:00 122 mm[Hg] Univer sity of [facility] Diastolic blood 2021-05-11 13:30:00 86 mm[Hg] [facility] Heart rate 2021-05-11 13:30:00 70 /min [facility] Body temperature 2021-05-11 13:30:00 36.67 Veronique [facility] Respiratory rate 2021-05-11 13:30:00 11 /min [facility] Body height 2021-05-11 13:30:00 188 cm [facility] Body weight 2021-05-11 13:30:00 86 kg [facility] BMI 2021-05-11 13:30:00 24.34 kg/m2 [facility] Oxygen saturation in 2021-05-11 13:30:00 100 /min [facility] Arterial blood by [facility] Pulse oximetry Branch Systolic blood 2021-04-04 20:56:00 128 mm[Hg] Univer sity of pressure [facility] Diastolic blood 2021-04-04 20:56:00 87 mm[Hg] Unive rsity of pressure [facility] Heart rate 2021-04-04 20:56:00 86 /min [facility] Body temperature 2021-04-04 20:56:00 36.89 [facility] height 2021-04-04 20:56:00 188 cm [facility] Body weight 2021-04-04 20:56:00 86.183 kg [facility] BMI 2021-04-04 20:56:00 24.39 kg/m2 [facility] Procedures Procedure Date / Time Performed Performing Clinician [facility] e PATIENT 2021-05-11 05:01:00 Doctor Unassigned, No [facility] TEACHING/INSTRUCTIONS- Name [facility] 2021-04-10 13:15:29 [facility] f [place] MAXILLOFACIAL/MANDIBLE [facility] WO CONTRAST REFERRAL- 2021-03-29 05:01:00 Doctor Unassigned, No [facility] REQUEST/RESPONSE Name [facility] Encounters Start End Encounter Admission Attending Care Care Encounter Source Date/Time Date/Time Type Type Clinicians Facility Department ID 2020-06-12 Outpatient MARCIE, [facility] [id number] [facility] 13:30:09 [facility] 2021-10-25 2021-10-25 Laboratory Only, Ang Db Test [facility] 1.2.8 40.114 [id number] [facility] 11:15:00 11:30:00 Only [place] Patton [facility] [id number] [facility] [id number] Austyn as DIALLO?BLEA [id number] [place] [address] MEDICAL OFFICE BUILDING 2021-10-25 2021-10-25 Outpatient R AL [facility] [id number] [facility] 11:15:00 11:18:29 [facility] 2021-10-25 Outpatient R [facility] [id number] [facility] 11:15:00 11:15:00 [id number] [facility] 2021-10-18 2021-10-18 Outpatient R [facility] [id number] Univers 09:15:00 09:15:00 [id number] ity [facility] 2021-10-18 2021-10-18 Outpatient R [facility] [id number] Univers 09:15:00 09:15:00 [facility] of [facility] [facility] 2021-05-23 2021-05-23 Outpatient [facility] [id number] Univers 17:40:00 17:40:00 [id number] ity [facility] 2021-05-23 2021-05-23 Laboratory Lab, Adc Fam Pob I [facility] 1.2. [id number] Univers 11:42:44 12:02:44 Only Annie Gomez [id number] ity [facility] [id number] Austyn as Professio [phone] [place]ical [address] Office Building One 2021-05-23 2021-05-23 Outpatient R PATRICIA [facility] [id number] Univers 11:20:00 11:20:00 ANNIE quiroga o f [facility] 2021-05-18 2021-05-18 [facility] [id number] Univers 16:00:00 16:59:32 RASHEL housedia [facility] 2021-05-18 2021-05-18 [facility] [id number] Univers 16:00:00 16:00:00 [facility] [id number] [facility]18 2021[facility]05-18 [facility] [id number] Univers 15:26:07 15:56:07 Visit Rashel MORRISON [id number] i ty of [facility] [id number] [place] [phone] [address] 2021-05-11 2021-05-11 Outpatient [facility] [id number] Univers 08:00:00 11:27:45 RASHEL housedia [facility] 2021-05-11 2021-05-11 Office [place], [facility] [id number] Univers 07:59:30 11:27:45 Visit Rashel MORRISON [id number] i ty of [facility] [id number] [phone] [facility] [address] 2021-05-11 2021-05-11 Outpatient [facility] [id number] Univers 08:00:00 08:00:00 RASHEL [id number] ity [facility] 2021-05-11 2021-05-11 Orders Doctor JUAN FRANCISCO [id number] Univers 00:00:00 00:00:00 Only Unassigned, CHRISTAL 350.1.13.10 ity of [facility] [id number] Austyn as [phone] [facility] [address] 2021-05-08 2021-05-08 Laboratory Only, Adc Test [facility] [id number]. [id number] Univers 15:36:26 15:51:26 Only Floyd Downey [id number] ity of [place] 4.2.7.2.686 [facility] [phone] [facility] [address] 2021-05-08 2021-05-08 Outpatient [facility] [id number] Univers 15:45:00 15:45:00 [id number] ity [facility] 2021-05-08 2021-05-08 Outpatient R [facility] [id number] Univers 15:45:00 15:45:00 ity [facility] 2021-04-11 2021-04-11 Outpatient R OSMAN [facility] [id number] Univers 15:30:00 15:30:00 RASHEL [id number] ity [facility] 2021-04-11 2021-04-11 Outpatient R OSMAN [facility] [id number] Univers 15:30:00 15:30:00 RASHEL dia [facility] 2021-04-10 2021-04-10 [facility] [id number] Univers 07:55:49 23:59:00 Encounter Rashel [place] [id number] ity [facility] [id number] [facility] [id number] [facility] [address] 2021-04-10 2021-04-10 Outpatient R OSMAN [facility] [id number] Univers 08:00:00 08:00:00 RASHEL [id number] ity [facility] 2021-04-10 2021-04-10 Outpatient R OSMAN [facility] [id number] Univers 00:00:00 00:00:00 RASHELSHANA quiroga [facility] 2021-04-04 2021-04-04 Office [facility] [id number] Univers 15:33:54 16:03:54 Visit Rashel MORRISON 350.1.13.10 i ty of [facility] [id number] [id number] [facility] [address] 2021-04-04 2021-04-04 [facility] [id number] Univers 16:00:00 16:00:00 RASHEL [id number] [facility] 2021-04-04 2021-04-04 [facility]patient [facility] [id number] Univers 16:00:00 16:00:00 RASHEL quiroga [facility] 2021-03-29 2021-03-29 Orders Doctor CHICAS [id number] Univers 00:00:00 00:00:00 Only Unassigned, CHRISTAL [id number] ity of [place] [facility] [id number] Austyn [phone] [facility] [address] 2020-05-11 2020-05-11 Outpatient MARCIE [facility] [id number] [facility] 07:51:00 07:51:00 SARAH Results Test Test Test Results Result Source Description Time Comments Comments CT 2021-03- Right anteromedial Unive rsity of MAXILLOFACIAL/M 29 maxilla 1.3 cm lucent [facility] WO 14:39:54 lesion with thinning of B [place] CONTRAST theanterior maxilla cortex and contiguous with the root of the right lateralmaxillar incisor (#7) is non specific. While periapical (radicular) cyst isin the differential, tooth #7 is otherwise unremarkable. Keratocysticodontogenic tumor is also in the differential. Consider contrast enhancedCT to determine no solid enhancement. Preliminary Report Dictated by Resident: Stacey Kilpatrick MD., have reviewed this study and agree with theabove report.EXAM: CT MAXILLOFACIAL/MANDIBLE WO CONTRAST HISTORY: 31 years -old Male with lesion of the left maxilla seen on outsideMRI. COMPARISON: None. TECHNIQUE: Routine unenhanced CT of the maxillofacial bones/paranasalsinuses was performed. FINDINGS: The frontal sinuses are clear. The frontal recesses are patent. The anterior and middle ethmoidal air cells are clear.Mucosal retention cyst noted in the left maxillar sinus. The ostiomeatalunits are patent. The lamina papyracea are intact. The roof of the ethmoids is symmetric. Thesphenoid septum is midline. The sphenoid sinuses are clear. The sphenoethmoidal recesses are patent. The posterior ethmoidal air cells are clear. The nasal septum is mildly deviated to the left. The turbinate morphologyis unremarkable. The nasal cavity is clear. A cystic lesion is seen surrounding the root of the right maxillary lateralincisor with anterior cortical breakthrough and measure 1.3 cm. [facility], Radiant Results Inft User - 04/10/2021 9:41 AM CDT EXAM: CT MAXILLOFACIAL/MANDIBLE WO CONTRASTHISTORY: 31 years -old Male with lesion of the left maxilla seen on outsideMRI.COMPARISON: None.TECHNIQUE: Routine unenhanced CT of the maxillofacial bones/paranasalsinuses was performed.FINDINGS: The frontal sinuses are clear. The frontal recesses are patent. The anterior and middle ethmoidal air cells are clear.Mucosal retention cyst noted in the left maxillar sinus. The ostiomeatalunits are patent. The lamina papyracea are intact. The roof of the ethmoids is symmetric. Thesphenoid septum is midline.The sphenoid sinuses are clear. The sphenoethmoidal recesses are patent. The posterior ethmoidal air cells are clear.The nasal septum is mildly deviated to the left. The turbinate morphologyis unremarkable. The nasal cavity is clear.A cystic lesion is seen surrounding the root of the right maxillary lateralincisor with anterior cortical breakthrough and measure 1.3 cm. IMPRESSIONRight anteromedial maxilla 1.3 cm lucent lesion with thinning of theanterior maxilla cortex and contiguous with the root of the right lateralmaxillar incisor (#7) is non specific. While periapical (radicular) cyst isin the differential, tooth #7 is otherwise unremarkable. Keratocysticodontogenic tumor is also in the differential. Consider contrast enhancedCT to determine no solid enhancement. Preliminary Report Dictated by Resident: Stacey Salazar MD., have reviewed this study and agree with theabove report.
[2022-05-23] MEDS ORDERED: FAMOTIDINE 20 MG/2 ML VIAL IV ONE (09:52)
[2022-05-23] MEDS ORDERED: NA CHLORIDE 0.9% 1,000 ML ONE (09:52)
[2022-05-23 10:04] LABS: Absolute Lymphocytes (CBC) 1.6 K/uL (0.7-4.9); Hematocrit 47.3 % (39.6-49.0); Lymphocytes % 17.3 % (15.3-44.8); MCV 88.4 fL (80-100); RBC Red Blood Cell Count 5.35 M/uL (4.33-5.43)
[2022-05-23 10:07] LABS: Albumin 4.3 g/dL (3.4-5.0); Bilirubin Total 0.4 mg/dL (0.2-1.0); Protein, Total 8.2 g/dL (6.4-8.2); Troponin High Sensitivity 3.6 pg/mL (<58.9)
[2022-05-23 10:10] LABS: Potassium 4.5 mmol/L (3.5-5.1)
[2022-05-23 10:16] LABS: Urine Blood Negative (Negative); Urine Glucose Negative (Negative); Urine Protein Negative (Negative); Urine Specific Gravity 1.015 (1.005-1.030)
--- NOTE | 2022-05-23 10:42 | RAD REPORT ---
EXAM DESCRIPTION: CTAbdomen Pelvis W Contrast - 05/23/2022 10:28 am CLINICAL HISTORY: LLQ abdominal pain COMPARISON: No comparisons TECHNIQUE: CT of the abdomen and pelvis was performed. All CT scans are performed using dose optimization technique as appropriate and may include automated exposure control or mA/KV adjustment according to patient size. FINDINGS: Lower chest: No acute abnormality. Liver: No acute abnormality or suspicious lesions. Biliary: No biliary ductal dilatation. Stomach: No significant focal abnormality. Duodenum: No significant focal abnormality. Pancreas: No significant abnormality. Spleen: No significant abnormality. Adrenal: No suspicious lesions. Kidney/ureter: No hydronephrosis. No renal calculi. Retroperitoneum: No retroperitoneal adenopathy. Vascular: No aneurysm. Bowel: No significant focal abnormality. Normal appendix. Peritoneum: No ascites or free air. Bladder: Grossly unremarkable. Reproductive: No adnexal masses. Bones: No acute fracture. Other: n/a IMPRESSION: No acute intra-abdominal or pelvic finding. Normal appendix. No findings to explain left lower quadrant abdominal pain.
--- NOTE | 2022-05-23 11:14 | ER ---
Nurse's Notes [facility] Name: Ari Albert Age: 32 yrs Sex: Male : 1990 Arrival Date: 05/23/2022 Time: 08:43 Bed 13 Private MD: Diagnosis: Abdominal pain, unspecified Presentation: 05/23 09:09 Chief complaint: Patient states: left sided abd pain X 2 weeks, got worse last night, iw was 10/10 last night, now 4/10, has been taking pepto, also feeling light headed and faint , denies n/v/d, no fever , no urinary symptoms. Coronavirus screen: Client presents with at least one sign or symptom that may indicate coronavirus-19. Ebola Screen: Patient negative for fever greater than or equal to 101.5 degrees Fahrenheit, and additional compatible Ebola Virus Disease symptoms Patient denies exposure to infectious person. Patient denies travel to an Ebola-affected area in the 21 days before illness onset. No symptoms or risks identified at this time. Initial Sepsis Screen: Does the patient meet any 2 criteria? No. Patient's initial sepsis screen is negative. Does the patient have a suspected source of infection? No. Patient's initial sepsis screen is negative. Risk Assessment: Do you want to hurt yourself or someone else? Patient reports no desire to harm self or others. Onset of symptoms was May 11, 2022. 09:09 Method Of Arrival: Ambulatory iw 09:09 Acuity: BENNY 3 iw Historical: - Allergies: 09:12 No Known Allergies; iw - Home Meds: 09:12 None [Active]; iw - PMHx: 09:12 Anxiety; PTSD; iw - Immunization history:: Client reports having NOT received the Covid vaccine. Flu vaccine is not up to date. - Social history:: Smoking status: Patient reports the use of cigarette tobacco products. Screenin:20 Abuse screen: Denies threats or abuse. Nutritional screening: No deficits noted. em6 Tuberculosis screening: No symptoms or risk factors identified. Fall Risk None identified. No fall in past 12 months (0 pts). No secondary diagnosis (0 pts). IV access (20 points). Ambulatory Aid- None/Bed Rest/Nurse Assist (0 pts). Gait- Normal/Bed Rest/Wheelchair (0 pts) Mental Status- Oriented to own ability (0 pts). Total Worthy Fall Scale indicates No Risk (0-24 pts). Assessment: 09:19 General: Appears in no apparent distress. comfortable, Behavior is calm, cooperative, em6 appropriate for age, Denies fever, chills. Pain: Complains of pain in left upper quadrant Pain radiates to anterior aspect of left lateral abdomen Pain currently is 2 out of 10 on a pain scale. Quality of pain is described as dull, Pain began 05/16/22 Aggravated by eating, drinking. Neuro: Altman Agitation-Sedation Scale (RASS): 0 - Alert and Calm Level of Consciousness is awake, alert, obeys commands, Oriented to person, place, time, situation, Reports dizziness, since 05/16/22. Cardiovascular: Heart tones present Capillary refill < 3 seconds Patient's skin is warm and dry. Chest pain is denied. Respiratory: Airway is patent Respiratory effort is even, unlabored, Respiratory pattern is regular, symmetrical, Breath sounds are clear bilaterally. Denies shortness of breath. GI: Abdomen is flat, non-distended, Last BM was May 23, 2022. Bowel sounds present X 4 quads. Abd is soft and non tender X 4 quads. Reports upper abdominal pain. : No signs and/or symptoms were reported regarding the genitourinary system. EENT: No signs and/or symptoms were reported regarding the EENT system. Derm: No signs and/or symptoms reported regarding the dermatologic system. Musculoskeletal: Circulation, motion, and sensation intact. 10:25 Reassessment: Patient appears in no apparent distress at this time. No changes from em6 previously documented assessment. Patient and/or family updated on plan of care and expected duration. Pain level reassessed. Patient is alert, oriented x 3, equal unlabored respirations, skin warm/dry/pink. 11:22 Reassessment: Patient appears in no apparent distress at this time. No changes from em6 previously documented assessment. Patient and/or family updated on plan of care and expected duration. Pain level reassessed. Patient is alert, oriented x 3, equal unlabored respirations, skin warm/dry/pink. Vital Signs: 09:12 BP 127 / 91; Pulse 84; Resp 16; Temp 98.0; Pulse Ox 100% on R/A; Weight 88.45 kg; iw Height 6 ft. 2 in. (187.96 cm); Pain 4/10; 10:18 BP 127 / 91; Pulse 67; Resp 14; Pulse Ox 100% on R/A; em6 11:22 BP 129 / 89; Pulse 72; Resp 14; Pulse Ox 100% on R/A; em6 09:12 Body Mass Index 25.04 (88.45 kg, 187.96 cm) ED Course: 08:43 Patient arrived in ED. mr 08:44 Wayne Prado, BRANDEN is PHCP. pm1 08:44 Miguel Ledezma DO is Attending Physician. pm1 09:12 Triage completed. iw 09:12 Arm band placed on. iw 09:20 Pulse ox on. NIBP on. em6 09:20 Patient has correct armband on for positive identification. Bed in low position. Call em6 light in reach. Side rails up X 1. 09:41 Inserted saline lock: 20 gauge in right antecubital area, using aseptic technique. em6 Blood collected. 10:21 Cathy Escobar, TIANA is Primary Nurse. jl7 10:30 CT Abd/Pelvis - IV Contrast Only In Process Unspecified. EDMS 11:32 No provider procedures requiring assistance completed. Inserted IV discontinued, em6 intact, bleeding controlled, No redness/swelling at site. Pressure dressing applied. Administered Medications: 09:52 Drug: NS 0.9% 1000 ml Route: IV; Rate: 1 bolus; Site: right antecubital; em6 11:32 Follow up: Response: No adverse reaction; IV Status: Infusion continued; IV Intake: em6 1000ml 09:52 Drug: Pepcid (famotidine) 20 mg Route: IVP; Site: right antecubital; em6 10:45 Follow up: Response: No adverse reaction em6 Medication: 10:08 VIS not applicable for this client. em6 Intake: 11:32 IV: 1000ml; Total: 1000ml. em6 Outcome: 11:13 Discharge ordered by MD. pm1 11:33 Discharged to home ambulatory. em6 11:33 Condition: stable 11:33 Discharge instructions given to patient, Instructed on discharge instructions, follow up and referral plans. medication usage, Demonstrated understanding of instructions, follow-up care, medications, Prescriptions given X 1. 11:33 Patient left the ED. em6 Signatures: Dispatcher [employer] EDWA Alysha Isbell mr ShaneCorina, RN RN iw Wayne Prado, BRANDEN GUM DIPPER pm1 Cathy Escobar, RN RN jl7 Katharina Francis RN RN em6 Corrections: (The following items were deleted from the chart) 09:19 Pain: Complains of pain in left upper quadrant Pain radiates to anterior aspect em6 of left lateral abdomen Pain currently is 2 out of 10 on a pain scale. Quality of pain is described as dull, Pain began 05/16/22 Aggravated by eating, drinking, em6 10 09:19 GI: Abdomen is flat, non-distended, Bowel sounds present X 4 quads. Abd is soft em6 and non tender X 4 quads. Reports upper abdominal pain, em6 10: 09:25 Pulse ox on. NIBP on. em6 em6
--- NOTE | 2022-05-23 11:14 | EDPHYS ---
Physician Documentation [facility] Name: Ari Albert Age: 32 yrs Sex: Male : 1990 Arrival Date: 05/23/2022 Time: 08:43 Bed 13 Private MD: ED Physician Miguel Ledezma HPI: 05/23 09:36 This 32 yrs old Male presents to ER via Ambulatory with complaints of pm1 Abdominal Pain, Dizziness. 09:36 The patient presents with abdominal pain in the left lower quadrant. Onset: The pm1 symptoms/episode began/occurred 2 week(s) ago, and became worse yesterday. The symptoms do not radiate. Associated signs and symptoms: Pertinent positives: Dizziness with eating, Pertinent negatives: nausea, vomiting, and diarrhea, chest pain, dysuria, fever, shortness of breath. The symptoms are described as dull. Modifying factors: The symptoms are alleviated by Pepto bismol, the symptoms are aggravated by food. Severity of pain: in the emergency department the pain has resolved Pepto bismol resolved his symptoms. Patient has been taking it daily for the past two weeks with onset of LUQ pain. Patient reports worsening symptoms after drinking alcohol last night. The patient has not experienced similar symptoms in the past. The patient has not recently seen a physician. Historical: - Allergies: 09:12 No Known Allergies; iw - Home Meds: 09:12 None [Active]; iw - PMHx: 09:12 Anxiety; PTSD; iw - Immunization history:: Client reports having NOT received the Covid vaccine. Flu vaccine is not up to date. - Social history:: Smoking status: Patient reports the use of cigarette tobacco products. ROS: 09:36 Constitutional: Negative for fever, chills, and weight loss, Cardiovascular: Negative pm1 for chest pain, palpitations, and edema, Respiratory: Negative for shortness of breath, cough, wheezing, and pleuritic chest pain. 09:36 Back: Negative for injury and pain, MS/Extremity: Negative for injury and deformity, Skin: Negative for injury, rash, and discoloration. 09:36 Abdomen/GI: Positive for abdominal pain, of the left upper quadrant, Negative for nausea, vomiting, and diarrhea. 09:36 Neuro: Positive for dizziness, Negative for headache, numbness, tingling. 09:36 All other systems are negative. Exam: 10:13 ECG was reviewed by the Attending Physician. pm1 10:13 Constitutional: This is a well developed, well nourished patient who is awake, alert, pm1 and in no acute distress. Head/Face: Normocephalic, atraumatic. 10:13 Back: No spinal tenderness. No costovertebral tenderness. Full range of motion. Skin: Warm, dry with normal turgor. Normal color with no rashes, no lesions, and no evidence of cellulitis. MS/ Extremity: Pulses equal, no cyanosis. Neurovascular intact. Full, normal range of motion. 10:13 Eyes: Exam is negative for acute changes, Periorbital structures: appear normal, Pupils: no acute changes, Extraocular movements: no acute changes, Conjunctiva: no acute changes, no injection. 10:13 ENT: Exam is negative for acute changes, Mouth: no acute changes, Lips: normal, moist, Oral mucosa: normal, pink and intact, moist. 10:13 Cardiovascular: Exam negative for acute changes, Rate: normal, Rhythm: regular, Pulses: no pulse deficits are appreciated. 10:13 Respiratory: Exam negative for acute changes, respiratory distress, shortness of breath, Breath sounds: are clear throughout. 10:13 Abdomen/GI: Exam negative for acute changes, Inspection: abdomen appears normal, Palpation: abdomen is soft and non-tender, in all quadrants. 10:13 Neuro: Exam negative for acute changes, Orientation: is normal, Mentation: is normal, Motor: is normal, moves all fours. Vital Signs: 09:12 BP 127 / 91; Pulse 84; Resp 16; Temp 98.0; Pulse Ox 100% on R/A; Weight 88.45 kg; iw Height 6 ft. 2 in. (187.96 cm); Pain 4/10; 10:18 BP 127 / 91; Pulse 67; Resp 14; Pulse Ox 100% on R/A; em6 11:22 BP 129 / 89; Pulse 72; Resp 14; Pulse Ox 100% on R/A; em6 09:12 Body Mass Index 25.04 (88.45 kg, 187.96 cm) iw MDM: 08:48 Patient medically screened. pm1 10:37 Counseling: I had a detailed discussion with the patient and/or guardian regarding: lab pm1 results, pending CT results. 10:37 Data reviewed: vital signs. Data interpreted: Pulse oximetry: on room air is 100 %. pm1 Interpretation: normal. 11:10 Counseling: I had a detailed discussion with the patient and/or guardian regarding: the pm1 historical points, exam findings, and any diagnostic results supporting the discharge/admit diagnosis, lab results, radiology results, the need for outpatient follow up, a retail parts professional, to return to the emergency department if symptoms worsen or persist or if there are any questions or concerns that arise at home, discussed dietary changes to help with symptoms and need to follow up with GI for further evaluation and treatment. 11:14 Special discussion: I have referred the patient to see his PCP for further evaluation pm1 of high blood pressure. Discussed EKG with patient for the possible atrial enlargement reading. Informed to follow up with PCP and to monitor blood pressure and address with his PCP for management if required. 05/23 09:24 Order name: CBC with Diff; Complete Time: 10:13 pm1 05/23 09:24 Order name: CMP; Complete Time: 10:13 pm1 05/23 09:24 Order name: Lipase; Complete Time: 10:13 pm1 05/23 09:24 Order name: CT Abd/Pelvis - IV Contrast Only; Complete Time: 10:54 pm1 05/23 09:24 Order name: Troponin High Sensitivity; Complete Time: 10:13 pm1 05/23 10:17 Order name: Urine Dipstick-Ancillary; Complete Time: 10:19 EDMS 05/23 09:24 Order name: IV Saline Lock; Complete Time: 09:52 pm1 05/23 09:24 Order name: Labs collected and sent; Complete Time: 09:52 pm1 05/23 09:24 Order name: EKG; Complete Time: 09:25 pm1 05/23 09:24 Order name: EKG - Nurse/Tech; Complete Time: 10:03 pm1 EC:13 Rate is 68 beats/min. Rhythm is regular, Normal Sinus Rhythm with No ectopy. QRS [place] pm1 is Normal. CO interval is normal. QRS interval is normal. QT interval is normal. No Q waves. T waves are Normal. No ST changes noted. Clinical impression: No evidence of ischemia and Interpretation: Normal sinus rhythm, possible left atrial enlargement. Administered Medications: :52 Drug: NS 0.9% 1000 ml Route: IV; Rate: 1 bolus; Site: right antecubital; em6 11:32 Follow up: Response: No adverse reaction; IV Status: Infusion continued; IV Intake: em6 1000ml 09:52 Drug: Pepcid (famotidine) 20 mg Route: IVP; Site: right antecubital; em6 10:45 Follow up: Response: No adverse reaction em6 Disposition: 20:59 Co-signature as Attending Physician, Miguel Ledezma DO I was immediately available on-site ms3 in the Emergency Department for consultation in the care of the patient. . Disposition Summary: 05/23/22 11:13 Discharge Ordered Location: Home pm1 Problem: new pm1 Symptoms: have improved pm1 Condition: Stable pm1 Diagnosis - Abdominal pain, unspecified pm1 Followup: pm1 - With: Emergency Department - When: As needed - Reason: Worsening of condition Followup: pm1 - With: Private Physician - When: 2 - 3 days - Reason: Recheck today's complaints, Continuance of care, Re-evaluation by your physician Discharge Instructions: - Discharge Summary Sheet pm1 - Abdominal Pain, Adult pm1 - Food Choices for Gastroesophageal Reflux Disease, Adult pm1 Forms: - Medication Reconciliation Form pm1 - Thank You Letter pm1 - Antibiotic Education pm1 - Prescription Opioid Use pm1 Prescriptions: - Pepcid 20 mg Oral Tablet - take 1 tablet by ORAL route every 12 hours for 10 days; 20 tablet; Refills: 0, pm1 Product Selection Permitted Signatures: Dispatcher [employer] Corina Duckworth, Wayne Do RN, BRANDEN INDUSTRIAL ROOFER HELPER pm1 Miguel Ledezma DO DO ms3 Katharina Francis RN RN em6
[2022-05-23 11:42] VITALS: TEMP 98; O2SAT 100
[2022-05-23 11:47] VITALS: BP 129/89
--- NOTE | 2022-05-24 13:33 | EKG ---
Test Date: 2022-05-23 Test Time: 10:03:16 Cotton Picker Operator: EM MEASUREMENT RESULTS: Intervals: Rate: 68 IA: 160 QRSD: 94 QT: 372 QTc: 395 [place]: P: 78 IA: 160 QRS: 85 T: 64 INTERPRETIVE STATEMENTS: Normal sinus rhythm Possible Left atrial enlargement Borderline ECG Compared to ECG 11/22/2019 17:03:58 Incomplete right bundle-branch block no longer present Electronically Signed On 05-24-22 13:32:35 CDT by Chavez Ramesh
== END 2022-05-23 11:33 | disposition home or self-care (01) ==
LOC: ER 08:40
DX: R10.32 Left lower quadrant pain (principal); R10.12 Left upper quadrant pain; R42 Dizziness and giddiness; Z72.0 Tobacco use
CPT/HCPCS: 96361; 93005; 85025; 36415; 81003; 84484; 83690; 80053; 74177; 96374; 99284; Q9967; J7030